=== PATIENT | male | born 1950 | race African-American/Black ===

== ENCOUNTER 2017-07-08 06:31 | Observation (INO) | payer BC ==
[~2017-07-08] VITALS: Ht 172.7 cm; Wt 86.5 kg
[2017-07-08] VITALS (11 sets, daily range): BP systolic 108–150; BP diastolic 56–80; PULSE 74–102; RESP 18–20; TEMP 97.8–99.7; O2SAT 93–99
[2017-07-08] MEDS ORDERED: SODIUM CHLORIDE 2 ML FLUSH PRN IV FLUSH (07:00)
[2017-07-08] MEDS ORDERED: SODIUM CHLOR 0.9% 1000 ML IV SCH (07:00)
[2017-07-08] MEDS: SODIUM CHLOR 0.9% 1000 ML IV SCH (07:00)
[2017-07-08] MEDS ORDERED: AMLO-131 PO (07:00)
[2017-07-08] MEDS ORDERED: NORC5TAB PO (07:00)
[2017-07-08] MEDS ORDERED: LOSA100T PO (07:00)
[2017-07-08] MEDS ORDERED: HYDR25TA5 PO (07:00)
[2017-07-08 07:18] LABS: AUTOMATED NEUTROPHIL # 9.5 TH/MM3 (1.8-7.7); BASOPHIL # 0.1 TH/MM3 (0-0.2); BASOPHIL % 0.9 % (0.0-2.0); EOSINOPHIL # 0.2 TH/MM3 (0-0.4); EOSINOPHIL % 1.4 % (0.0-4.0); HEMATOCRIT 28.3 % (39.0-51.0); LYMPH % 9.2 % (9.0-44.0); LYMPHOCYTE # 1.1 TH/MM3 (1.0-4.8); MEAN CELL VOLUME 70.7 FL (80.0-100.0); MEAN CORPUSCULAR HEMOGLOBIN 22.4 PG (27.0-34.0); MEAN CORPUSCULAR HGB CONC 31.7 % (32.0-36.0); MEAN PLATELET VOLUME 7.7 FL (7.0-11.0); MONO % 9.9 % (0.0-8.0); MONOCYTE # 1.2 TH/MM3 (0-0.9); NEUT % 78.6 % (16.0-70.0); PLATELET COUNT 323 TH/MM3 (150-450); RED CELL DISTRIBUTION WIDTH 15.2 % (11.6-17.2); WHITE BLOOD COUNT 12.1 TH/MM3 (4.0-11.0)
[2017-07-08] MEDS ORDERED: LIDOCAINE 1%/EPINEPHrine 1:100,000 SOLN 20 ML VIAL ONE (07:50)
[2017-07-08] MEDS ORDERED: MIDAZOLAM HCL 2 MG/2 ML VIAL ONE (08:06)
[2017-07-08] MEDS: SODIUM CHLORIDE 2 ML FLUSH BID IV FLUSH SCH ×2 (09:00→20:57)
--- NOTE | 2017-07-08 09:05 | PD.RAD ---
Post CT Procedure Prog Note Pre Procedure Diagnosis: (1) Liver masses Post Procedure Diagnosis: (1) Liver masses Procedure Date: Jul 08, 2017 Supervising Radiologist: Fabian Dawson Estimated blood loss: minimal Anesthesia: Conscious Sedation Plan of Activity Patient to Unit: [facility] Patient Condition: Good See PACS Report for procedural detail/treatment Biopsy Imaging Guidance: CT Side: Right Biopsy Procedure: Liver Specimen: Core Biopsy Additional Detail: 10 18G core biopsies obtained. Plan to [facility] for monitoring. Fabian Dawson MD Jul 08, 2017 09:05
[2017-07-08] MEDS ORDERED: HYDROmorphone HCL 2 MG TAB PO PRN (09:15)
[2017-07-08] MEDS ORDERED: PILL SPLITTER OTHER PRN (09:30)
--- NOTE | 2017-07-08 10:30 | RADRPT ---
EXAM DATE/TIME: 07/08/2017 08:17 This report includes an Addendum and supersedes previous reports for this exam. [facility] COMPARISON: No previous studies available for comparison. INDICATIONS : Liver mass. SEDATION TIME: 30 minutes BIOPSY SITE: liver MEDICATION(S): 1.) 2 mg midazolam (Versed) IV 2.) 100 mcg fentanyl (Sublimaze) IV DEVICE(S): 1.) 17 gauge coaxial 10cm 2.) 18 gauge Temno core biopsy needle 15cm MEDICAL HISTORY : Carcinoma, prostate. SURGICAL HISTORY : None. ENCOUNTER: Initial ACUITY: 1 day PAIN SCORE: 0/10 LOCATION: Right lateral A total of ten core specimen(s) were obtained and sent to the laboratory for pathologic evaluation. PROCEDURE: 1. CT guided liver biopsy. 2. Conscious sedation with continuous EKG and oximetry monitoring. Prior to the procedure informed consent was obtained. The patient's prior PET CT examination was revi ewed. Using automated exposure control and adjustment of the mA and/or kV according to patient size, radiat ion dose was kept as low as reasonably achievable to obtain optimal diagnostic quality images. DICOM format image data is available electronically for review and comparison. The site was prepped in a sterile fashion. Full sterile technique was used, including cap, mask, aryan rile gloves and gown and a large sterile sheet. Hand hygiene and 2% chlorhexidine and/or betadine/al cohol prep was utilized per protocol for cutaneous antisepsis. The skin and subcutaneous tissues wer e infiltrated with local anesthetic solution. With CT guidance the abnormal right lobe of the liver was targeted with attempt to pass through dariusz l liver peripherally. Biopsy was performed using the prescribed needle as above. Adequate hemostasis was obtained with compression at the puncture site. Cyto technologist was present during the procedu re and felt that a cellular was specimen was obtained. Follow-up CT scan reveals a right perihepatic hemorrhage and hematoma. The patient tolerated the procedure well and there were no complications. The patient was returned to the Radiology Outpatient Unit in stable condition. CONCLUSION: CT guided liver biopsy performed, as above. There is perihepatic hemorrhage at the end of the procedu re. Patient will be monitored closely for any signs of continued bleeding. Fabian Dawson MD on July 08, 2017 at 10:21 Board Certified Radiologist. This report was verified electronically. ADDENDUM: Followup CT was performed 8 hours postprocedure to further evaluate the fred[place]ick hepatic and intraperiton eal hemorrhage. The volume of blood products is unchanged compared to the three-hour scan performed p ost biopsy. No angiogram or interventional procedure will likely be needed given the stability. Patie nt will be placed and 23 hour observation to closely monitor for any signs of additional hemorrhage. Fabian Dawson MD on July 08, 2017 at 17:20 Board Certified Radiologist. This report was verified electronically.
--- NOTE | 2017-07-08 16:26 | PD.CONS ---
HPI Service [facility] Hospitalists Consult Requested By Interventional radiology services Reason for Consult Medical management Primary Care Physician Non-Staff Diagnoses: History of Present Illness Written by Teri Abbasi, acting as scribe for Dr. Hagen on 07/08/17 at 16: 18. This is a 66-year-old male with past medical history significant for hypertension, dyslipidemia and prostate cancer who recently presented to [facility] in [place] with 1-2 month history of anorexia, 10 pound weight loss and lack of energy. He was also expecting abdominal pain. Patient underwent CT of abdomen and pelvis which revealed diffuse metastatic disease in the liver and an enhancing area overlying the mesentery and omentum consistent with omental metastatic involvement. He was also found to have an large lymph nodes and suspicious masslike involvement into the rectum suggestive of malignancy. Patient was recently seen for his initial evaluation by Dr. Hay who recommended patient for CT-guided biopsy of liver. Patient underwent CT-guided biopsy liver today by Dr. Fuentes with perihepatic hematoma. He has been admitted for overnight observation and hospitalist services have been consulted for medical management. Review of Systems Except as stated in HPI: all other systems reviewed are Neg Past Family Social History Allergies: Coded Allergies: No Known Allergies (Unverified , 07/08/17) Past Medical History HTN HLD Prostate Cancer Kidney disease Past Surgical History Colonoscopy Reported Medications AmLODIPine Besylate 1 Tablet (of 10 mg) Oral daily Atorvastatin Calcium 1 Tablet (of 20 mg) Oral daily HydroCHLOROthiazide 1 Tablet (of 25 mg) Oral daily Losartan Potassium 1 Tablet (of 100 mg) Oral daily [place] 1 Tablet (of 5-325 mg) Oral daily Active Ordered Medications Current Medications Medications (Trade) Dose Ordered Sig/Gena Route Start Time Stop Time Status Last Admin (NS Flush) 2 ml BID IV FLUSH 07/08/17 09:00 (NS Flush) 2 ml UNSCH PRN IV FLUSH 07/08/17 07:00 Sodium Chloride 1,000 ml @ 30 mls/hr Q24H IV 07/08/17 07:00 07/08/17 07:00 (Dilaudid) 1 mg Q6H PRN PO 07/08/17 09:15 (Pill Splitter) 1 ea UNSCH PRN OTHER 07/08/17 09:30 Social History Patient has a history of previous tobacco use for 2 years but quit smoking 30 years ago. He is a former drinker. Patient is and lives with his . Physical Exam Vital Signs Vital Signs Date Time Temp Pulse Resp B/P (MAP) Pulse Ox O2 Delivery O2 Flow Rate FiO2 07/08/17 14:00 94 Room Air 07/08/17 14:00 89 20 127/68 (87) 94 07/08/17 13:00 90 20 135/68 (90) 95 07/08/17 13:00 95 Room Air 07/08/17 11:00 98 20 117/64 (81) 95 07/08/17 11:00 95 Room Air 07/08/17 10:30 82 20 121/56 (77) 96 07/08/17 10:30 96 Room Air 07/08/17 10:00 74 20 118/65 (82) 95 07/08/17 10:00 95 Room Air 07/08/17 09:40 96 Room Air 07/08/17 09:40 84 20 137/78 (97) 96 07/08/17 09:25 98.3 86 20 137/78 (97) 97 07/08/17 09:25 95 Room Air 07/08/17 09:24 95 Room Air 07/08/17 07:00 94 Room Air 07/08/17 06:50 97.8 102 20 150/80 (103) 94 Physical Exam GENERAL: This is a well-nourished, well-developed patient, in no apparent distress. SKIN: No rashes, ecchymoses or lesions. Cool and dry. HEAD: Atraumatic. Normocephalic. No temporal or scalp tenderness. EYES: Pupils equal round and reactive. Extraocular motions intact. No scleral icterus. No injection or drainage. ENT: Nose without bleeding, purulent drainage or septal hematoma. Throat without erythema, tonsillar hypertrophy or exudate. Uvula midline. Airway patent. NECK: Trachea midline. No JVD or lymphadenopathy. Supple, nontender, no meningeal signs. CARDIOVASCULAR: Regular rate and rhythm without murmurs, gallops, or rubs. RESPIRATORY: Clear to auscultation. Breath sounds equal bilaterally. No wheezes , rales, or rhonchi. GASTROINTESTINAL: Abdomen soft, non-tender, nondistended. No hepato-splenomegaly , or palpable masses. No guarding. MUSCULOSKELETAL: Extremities without clubbing, cyanosis, or edema. No joint tenderness, effusion, or edema noted. No calf tenderness. Negative Homans sign bilaterally. NEUROLOGICAL: Awake and alert. Cranial nerves II through XII intact. Motor and sensory grossly within normal limits. Five out of 5 muscle strength in all muscle groups. Normal speech. Laboratory Laboratory Tests Test 07/08/17 07:08 White Blood Count 12.1 Red Blood Count 4.00 Hemoglobin 9.0 Hematocrit 28.3 Mean Corpuscular Volume 70.7 Mean Corpuscular Hemoglobin 22.4 Mean Corpuscular Hemoglobin Concent 31.7 Red Cell Distribution Width 15.2 Platelet Count 323 Mean Platelet Volume 7.7 Neutrophils (%) (Auto) 78.6 Lymphocytes (%) (Auto) 9.2 Monocytes (%) (Auto) 9.9 Eosinophils (%) (Auto) 1.4 Basophils (%) (Auto) 0.9 Neutrophils # (Auto) 9.5 Lymphocytes # (Auto) 1.1 Monocytes # (Auto) 1.2 Eosinophils # (Auto) 0.2 Basophils # (Auto) 0.1 CBC Comment DIFF FINAL Differential Comment Result Diagram: 07/08/17 0708 Assessment and Plan Assessment and Plan 66-year-old male with past medical history significant for hypertension, dyslipidemia and prostate cancer with liver lesions, omental lesions and retroperitoneal adenopathy highly suspicious for malignancy status post CT- guided biopsy of the liver today performed by Dr. Fuentes with perihepatic hematoma admitted for overnight observation. s/p CT guided biopsy of the liver by IR - Management per IR Perihepatic hematoma s/p biopsy - Avoid anticoagulants - Monitor CBC closely Abdominal pain secondary to malignancy - Pain management with bowel regimen Anemia, microcytic, hypochromic - Suspect anemia of chronic disease - Obtain iron studies - Monitor CBC closely especially in light postprocedural perihepatic hematoma Leukocytosis - Suspect reactive - Patient is afebrile - Monitor white count, a.m. labs ordered Hypertension - hypotensive at present - gentle IVF - Hold home dose of amlodipine, hydrochlorothiazide and losartan - Monitor BP and adjust treatment accordingly Dyslipidemia - Continue patient on home dose of atorvastatin DVT prophylaxis - Chemoprophylaxis contraindicated - Bilateral SCDs/BETTY hose Thank you for the kindly for this consultation. Will continue to follow this patient along with you. This note was transcribed by KARLEY Ortega. I, Dr. Zulema Hagen personally performed the history, physical exam, and medical decision making; and confirmed the accuracy of the information in the transcribed note. Authenticated by Dr. Zulema Hagen on 07/08/17 at 16:18. Discussed Condition With patient, nursing staff Teri Abbasi Jul 08, 2017 16:26 Zulema Hagen MD Jul 08, 2017 19:34
[2017-07-08 17:28] LABS: HEMOGLOBIN 8.1 GM/DL (13.0-17.0)
[2017-07-08 17:51] LABS: % SATURATION IRON PROFILE 13.4 % (20-50); IRON (FE) 30 MCG/DL (65-175); TOTAL IRON BINDING CAPACITY 224 MCG/DL (250-450)
[2017-07-08 18:06] LABS: FERRITIN 2470 NG/ML (26-388)
[2017-07-09] VITALS: BP 125/83; PULSE 91; RESP 20; TEMP 98.9; O2SAT 95
[2017-07-09 04:28] VITALS: BP 135/60; PULSE 86; RESP 18; TEMP 98.9; O2SAT 98
[2017-07-09 07:55] VITALS: BP 116/64; PULSE 87; RESP 19; TEMP 98.5; O2SAT 97
[2017-07-09 07:55] LABS: AUTOMATED NEUTROPHIL # 8.5 TH/MM3 (1.8-7.7); BASOPHIL # 0.1 TH/MM3 (0-0.2); BASOPHIL % 0.8 % (0.0-2.0); EOSINOPHIL # 0.1 TH/MM3 (0-0.4); EOSINOPHIL % 0.5 % (0.0-4.0); HEMATOCRIT 23.7 % (39.0-51.0); HEMOGLOBIN 7.5 GM/DL (13.0-17.0); LYMPHOCYTE # 1.2 TH/MM3 (1.0-4.8); MEAN CELL VOLUME 70.3 FL (80.0-100.0); MEAN CORPUSCULAR HEMOGLOBIN 22.3 PG (27.0-34.0); MEAN CORPUSCULAR HGB CONC 31.6 % (32.0-36.0); MEAN PLATELET VOLUME 8.3 FL (7.0-11.0); MONOCYTE # 1.3 TH/MM3 (0-0.9); NEUT % 75.7 % (16.0-70.0); PLATELET COUNT 267 TH/MM3 (150-450); RED BLOOD COUNT 3.36 MIL/MM3 (4.50-5.90); WHITE BLOOD COUNT 11.2 TH/MM3 (4.0-11.0)
[2017-07-09] MEDS: SODIUM CHLORIDE 2 ML FLUSH BID IV FLUSH SCH (08:23)
[2017-07-09] MEDS: SODIUM CHLOR 0.9% 1000 ML IV SCH (08:24)
[2017-07-09 08:48] LABS: ALBUMIN 2.8 GM/DL (3.4-5.0); ALT (GPT) 127 U/L (12-78); AST (GOT) 173 U/L (15-37); BLOOD UREA NITROGEN 57 MG/DL (7-18); CALCIUM 9.2 MG/DL (8.5-10.1); CHLORIDE 102 MEQ/L (98-107); CREATININE 2.24 MG/DL (0.60-1.30); GLOMERULAR FILTRATION RATE 36 ML/MIN (>89); GLUCOSE,RANDOM 96 MG/DL (74-106); SODIUM (NA) 138 MEQ/L (136-145)
[2017-07-09 08:50] LABS: ALKALINE PHOSPHATASE 561 U/L (45-117); TOTAL BILIRUBIN ADULT 1.2 MG/DL (0.2-1.0); TOTAL PROTEIN 7.7 GM/DL (6.4-8.2)
[2017-07-09] MEDS ORDERED: HYDROCHLOROTHIAZIDE 25 MG TAB PO SCH (09:00)
[2017-07-09] MEDS ORDERED: LOSARTAN 50 MG TAB PO SCH (09:00)
[2017-07-09] MEDS ORDERED: ATORVASTATIN 20 MG TAB PO SCH (09:00)
[2017-07-09] MEDS ORDERED: NON-FORMULARY DRUG (Amlodipine-Atorvastatin 1 TAB) PO SCH (09:00)
[2017-07-09 11:41] VITALS: BP 117/67; PULSE 90; RESP 18; TEMP 99.1; O2SAT 98
[2017-07-09 13:05] LABS: AUTOMATED NEUTROPHIL # 8.4 TH/MM3 (1.8-7.7); BASOPHIL # 0.1 TH/MM3 (0-0.2); BASOPHIL % 0.8 % (0.0-2.0); EOSINOPHIL # 0.1 TH/MM3 (0-0.4); EOSINOPHIL % 0.6 % (0.0-4.0); HEMATOCRIT 25.5 % (39.0-51.0); HEMOGLOBIN 7.8 GM/DL (13.0-17.0); LYMPH % 11.7 % (9.0-44.0); LYMPHOCYTE # 1.3 TH/MM3 (1.0-4.8); MEAN CELL VOLUME 70.4 FL (80.0-100.0); MEAN CORPUSCULAR HEMOGLOBIN 21.6 PG (27.0-34.0); MEAN CORPUSCULAR HGB CONC 30.6 % (32.0-36.0); MEAN PLATELET VOLUME 7.9 FL (7.0-11.0); MONO % 10.9 % (0.0-8.0); MONOCYTE # 1.2 TH/MM3 (0-0.9); PLATELET COUNT 288 TH/MM3 (150-450); RED BLOOD COUNT 3.62 MIL/MM3 (4.50-5.90); RED CELL DISTRIBUTION WIDTH 15.4 % (11.6-17.2); WHITE BLOOD COUNT 11.1 TH/MM3 (4.0-11.0)
--- NOTE | 2017-07-09 14:21 | HHI.DS ---
Discharge Summary Admission Date 07/08/17 Discharge Date: Jul 09, 2017 Admitting Diagnosis Perihepatic hematoma. (1) Liver masses ICD Code: R16.0 - Hepatomegaly, not elsewhere classified Procedures A biopsy performed by interventional radiology. Please see report. Brief History - From Admission Written by Teri Abbasi, acting as scribe for Dr. Hagen on 07/08/17 at 16: 18. This is a 66-year-old male with past medical history significant for hypertension, dyslipidemia and prostate cancer who recently presented to [facility] in [place] with 1-2 month history of anorexia, 10 pound weight loss and lack of energy. He was also expecting abdominal pain. Patient underwent CT of abdomen and pelvis which revealed diffuse metastatic disease in the liver and an enhancing area overlying the mesentery and omentum consistent with omental metastatic involvement. He was also found to have an large lymph nodes and suspicious masslike involvement into the rectum suggestive of malignancy. Patient was recently seen for his initial evaluation by Dr. Hay who recommended patient for CT-guided biopsy of liver. Patient underwent CT-guided biopsy liver today by Dr. Fuentes with perihepatic hematoma. He has been admitted for overnight observation and hospitalist services have been consulted for medical management. CBC/BMP: 07/09/17 1237 07/09/17 0707 Significant Findings Laboratory Tests Test 07/08/17 07:08 07/08/17 16:57 07/09/17 07:07 07/09/17 12:37 White Blood Count 12.1 TH/MM3 (4.0-11.0) 11.2 TH/MM3 (4.0-11.0) 11.1 TH/MM3 (4.0-11.0) Red Blood Count 4.00 MIL/MM3 (4.50-5.90) 3.36 MIL/MM3 (4.50-5.90) 3.62 MIL/MM3 (4.50-5.90) Hemoglobin 9.0 GM/DL (13.0-17.0) 8.1 GM/DL (13.0-17.0) 7.5 GM/DL (13.0-17.0) 7.8 GM/DL (13.0-17.0) Hematocrit 28.3 % (39.0-51.0) 26.0 % (39.0-51.0) 23.7 % (39.0-51.0) 25.5 % (39.0-51.0) Mean Corpuscular Volume 70.7 FL (80.0-100.0) 70.3 FL (80.0-100.0) 70.4 FL (80.0-100.0) Mean Corpuscular Hemoglobin 22.4 PG (27.0-34.0) 22.3 PG (27.0-34.0) 21.6 PG (27.0-34.0) Mean Corpuscular Hemoglobin Concent 31.7 % (32.0-36.0) 31.6 % (32.0-36.0) 30.6 % (32.0-36.0) Neutrophils (%) (Auto) 78.6 % (16.0-70.0) 75.7 % (16.0-70.0) 76.0 % (16.0-70.0) Monocytes (%) (Auto) 9.9 % (0.0-8.0) 12.0 % (0.0-8.0) 10.9 % (0.0-8.0) Neutrophils # (Auto) 9.5 TH/MM3 (1.8-7.7) 8.5 TH/MM3 (1.8-7.7) 8.4 TH/MM3 (1.8-7.7) Monocytes # (Auto) 1.2 TH/MM3 (0-0.9) 1.3 TH/MM3 (0-0.9) 1.2 TH/MM3 (0-0.9) Iron Level 30 MCG/DL (65-175) Total Iron Binding Capacity 224 MCG/DL (250-450) Percent Iron Saturation 13.4 % (20-50) Ferritin 2470 NG/ML (26-388) Blood Urea Nitrogen 57 MG/DL (7-18) Creatinine 2.24 MG/DL (0.60-1.30) Albumin 2.8 GM/DL (3.4-5.0) Alkaline Phosphatase 561 U/L (45-117) Aspartate Amino Transf (AST/SGOT) 173 U/L (15-37) Alanine Aminotransferase (ALT/SGPT) 127 U/L (12-78) Total Bilirubin 1.2 MG/DL (0.2-1.0) Estimat Glomerular Filtration Rate 36 ML/MIN (>89) PE at Discharge GENERAL: sitting up in bed. Appears comfortable. Alert and oriented 4. SKIN: Warm and dry. HEAD: Normocephalic. EYES: No scleral icterus. No injection or drainage. NECK: Supple, trachea midline. No JVD. CARDIOVASCULAR: Regular rate and rhythm without murmurs, gallops, or rubs. RESPIRATORY: Breath sounds equal bilaterally. No accessory muscle use. GASTROINTESTINAL: Abdomen soft, non-tender, nondistended. Biopsy site without any surrounding erythema or ecchymosis. MUSCULOSKELETAL: No cyanosis, or edema. BACK: Nontender without obvious deformity. No CVA tenderness. Pt update on day of discharge Patient says he is feeling well. Denies any chest pain or shortness breath. Denies any nausea or vomiting. Reports pain is controlled. Feels like going home. Hospital Course 66-year-old male with past medical history significant for hypertension, dyslipidemia and prostate cancer with liver lesions, omental lesions and retroperitoneal adenopathy highly suspicious for malignancy status post CT- guided biopsy of the liver today performed by Dr. Fuentes with perihepatic hematoma admitted for overnight observation. Hemoglobin went down from 9.0-7.5 on 07/09. Subsequent hemoglobin 7.8. Patient blood pressure found to be borderline low, and losartan, amlodipine will be discontinued. We'll also discontinue patient's statin medication due to malignant transaminitis. followup with oncology as outpatient. //s/p CT guided biopsy of the liver by IR - Management per IR = Patient cleared by IR for discharge. //Perihepatic hematoma s/p biopsy - Avoid anticoagulants - Monitor CBC closely = Hemoglobin down to 7.5. Recheck at noon 7.8. Stable. IR has clear patient for discharge. //Abdominal pain secondary to malignancy - Continue Pain management with bowel regimen //Anemia, microcytic, hypochromic - Suspect anemia of chronic disease - Obtain iron studies - Monitor CBC closely especially in light postprocedural perihepatic hematoma //Leukocytosis - Suspect reactive - Patient is afebrile -White count 12.1 on admission, subsequently 11.1. No signs of infection. //Hypertension - hypotensive at present - gentle IVF - Hold home dose of amlodipine, hydrochlorothiazide and losartan - Monitor BP and adjust treatment accordingly -Blood pressure relatively low with systolic blood pressures in the 100s. We 'll discontinue home amlodipine, losartan. Continue hydrochlorothiazide at this may help with ascites. //Dyslipidemia -Continue statin due to ligament transaminitis. //DVT prophylaxis - Chemoprophylaxis contraindicated - Bilateral SCDs/BETTY jones Pt Condition on Discharge: Good Discharge Disposition: Discharge Home Discharge Time: > 30 minutes Discharge Instructions DIET: Follow Instructions for: As Tolerated, No Restrictions Activities you can perform: Regular-No Restrictions Follow up Referrals: Oncology - 1 Week PCP Follow-up - 1 Week Continued Medications: Hydrochlorothiazide (Hydrochlorothiazide) 25 Mg Tab 25 MG PO DAILY, #30 TAB 0 Refills Hydrocodone-Acetaminophen ([place]) 5 Mg-325 Mg Tab 1 TAB PO Q4H PRN for PAIN, TAB 0 Refills Discontinued Medications: Amlodipine-Atorvastatin (Amlodipine-Atorvastatin) 10-20 Mg Tab 1 TAB PO DAILY for Blood Pressure Management, #30 TAB 0 Refills Losartan (Losartan) 100 Mg Tab 100 MG PO DAILY for Blood Pressure Management, #30 TAB 0 Refills Rojelio Brown MD Jul 09, 2017 14:21
== END 2017-07-09 15:24 | disposition home or self-care (01) ==
LOC: HRAD 06:31 → HRIP 06:35 → HRAD 13:00 → N05B 13:00 → HRAD 07-09 15:24 → N05B 07-09 15:24
PROVIDERS: ADMIT Internal Medicine; ATTEND Internal Medicine
DX: C78.7 Secondary malignant neoplasm of liver and intrahepatic bile duct (principal); C78.6 Secondary malignant neoplasm of retroperitoneum and peritoneum; C61 Malignant neoplasm of prostate; K91.870 Postprocedural hematoma of a digestive system organ or structure following a digestive system procedure; D72.829 Elevated white blood cell count, unspecified; D50.9 Iron deficiency anemia, unspecified; I10 Essential (primary) hypertension; G89.3 Neoplasm related pain (acute) (chronic); R10.9 Unspecified abdominal pain; E78.5 Hyperlipidemia, unspecified; R18.8 Other ascites; Z87.891 Personal history of nicotine dependence; Y83.8 Other surgical procedures as the cause of abnormal reaction of the patient, or of later complication, without mention of misadventure at the time of the procedure
CPT/HCPCS: 47000; 77012; 80053; 82728; 83540; 83550; 85014; 85018; 85025; 88307; 88333; 88341; 88342; 96360; 96361; G0378; J2250; J3010; J7030

== ENCOUNTER 2017-07-22 05:55 | Day surgery (SDC) | payer MEDICARE ==
[~2017-07-22] VITALS: Ht 175.3 cm; Wt 74.5 kg
[~2017-07-22 05:55] MED LIST: HYDR25TA5 PO; NORC5TAB PO
[2017-07-22] MEDS ORDERED: AMLO10TA2 PO (06:37)
[2017-07-22 06:43] VITALS: BP 138/84; PULSE 108; RESP 20; TEMP 98.1; O2SAT 97
[2017-07-22] MEDS ORDERED: VANCOMYCIN 1000 MG/NS 250 ML - implanted port/tunneled catheter IV SCH ×2 (07:00)
[2017-07-22] MEDS ORDERED: CHLORHEXIDINE GLUCONATE 2 % 1 PACK (2 CLOTHS) TOPICAL SCH (07:00)
[2017-07-22] MEDS ORDERED: POVIDONE IODINE 5% (ANTISEPSIS KIT) 4 APPLICATIONS EACH NARE SCH (07:00)
[2017-07-22] MEDS ORDERED: SODIUM CHLORIDE 0.9% 1000 ML IV SCH (07:00)
[2017-07-22] MEDS ORDERED: ceFAZolin 2 GM PREMIX 50 ML - implanted port/tunneled catheter insertion IV SCH (07:00)
[2017-07-22 07:45] LABS: INTERNATIONAL NORMALIZED RATIO 1.2 RATIO; PROTHROMBIN TIME - PATIENT 11.7 SEC (9.8-11.6)
[2017-07-22] MEDS ORDERED: MIDAZOLAM HCL 2 MG/2 ML VIAL ONE ×2 (07:47→07:48)
[2017-07-22 08:55] VITALS: BP 116/85; PULSE 95; RESP 20; TEMP 97.9; O2SAT 97
[2017-07-22 09:10] VITALS: BP 121/80; PULSE 93; RESP 20; O2SAT 97
--- NOTE | 2017-07-22 09:12 | RADRPT ---
EXAM DATE/TIME: 07/22/2017 08:47 [facility] COMPARISON: No previous studies available for comparison. INDICATIONS : Patient presents with liver cancer in need of port placement for chemotherapy treatment. MEDICAL HISTORY : Prostate cancer HTN SURGICAL HISTORY : Colonoscopy ENCOUNTER: Initial ACUITY: 2 weeks PAIN SCORE: 0/10 LOCATION: N/A FLUORO TIME: 0.6 minutes IMAGE SERIES: 0 SEDATION TIME: 45 minutes ACCESS: Right internal jugular vein SEDATION: 1.) 2.5 mg midazolam (Versed) IV 2.) 125 mcg fentanyl (Sublimaze) IV Prophylactic antibiotics were administered with appropriate pre-procedure timing. Vancomycin within 2 hours of procedure, Ancef (or alternative) within 1 hour of procedure. DEVICE: 1. 8 Setswana single lumen Xcela plus port PROCEDURE : 1. Continuous pulse oximetry and EKG monitoring. 2. Intravenous conscious sedation. 3. Ultrasound guidance for venous access. 4. Fluoroscopic guided implantable central venous port placement. The patient was placed supine. The neck was prepped in sterile fashion. Full sterile technique was u sed, including cap, mask, sterile gloves and gown, and a large sterile sheet. Hand hygiene and 2% ch lorhexidine Betadine was utilized per protocol for cutaneous antisepsis with appropriate dry time for site. Sterile gel and sterile probe cover were utilized for ultrasound guidance. The skin and sub cutaneous tissues were infiltrated with local anesthetic solution. Under direct ultrasound guidance, central venous access was accomplished in the targeted vessel. The ultrasound images depicting access guidance were stored and saved to PACS for permanent record. A s ubcutaneous pocket was created using blunt dissection. The port was introduced to the pocket. The c atheter tubing was fed through a subcutaneous tunnel to the venotomy site. The catheter tubing was c ut to a suitable length and then was introduced through a valved Peel-Away sheath and positioned with catheter tubing tip at the cavo-atrial junction level. The pocket incision was closed with subcutic ular Vicryl suture. Steri-Strips were applied. The port was flushed and locked with heparin solutio n per protocol. Sterile dressing was applied to the site. The patient tolerated the procedure well. Conscious sedation was performed with the prescribed dosages and duration as above in the presence of an independent trained radiology nurse to assist in the monitoring of the patient. EKG and oximetry remained stable throughout the procedure. The patient tolerated the procedure well and there were no complications. The patient was sent to post anesthesia recovery in stable condition. CONCLUSION: Uncomplicated ultrasound and fluoroscopic guided implanted central venous port catheter placement as described in detail above. An 8 Setswana Power port was placed. Thomas Watson MD on July 22, 2017 at 9:09 Board Certified Radiologist. This report was verified electronically.
[2017-07-22 09:40] VITALS: BP 123/73; PULSE 88; RESP 18; O2SAT 95
[2017-07-22 10:10] VITALS: BP 133/75; PULSE 88; RESP 16; O2SAT 95
[2017-07-22 10:40] VITALS: BP 128/76; PULSE 89; RESP 16; O2SAT 95
--- NOTE | 2017-07-22 11:10 | PD.RAD ---
Post Procedure Progress Note Pre Procedure Diagnosis: (1) Liver masses Post Procedure Diagnosis: (1) Liver masses Procedure Date: Jul 22, 2017 Supervising Radiologist: Thomas Watson Anesthesia: Conscious Sedation Plan of Activity Patient to Unit: ROPU Patient Condition: Good See PACS Report for procedural detail/treatment Thomas Watson MD Jul 22, 2017 11:10
[2017-07-22] MEDS ORDERED: SODIUM CHLORIDE 0.9% FLUSH 10 ML FLUSH IVF PRN (11:15)
== END 2017-07-22 11:40 | disposition home or self-care (01) ==
LOC: HROP 05:55 → HRIP 05:55 → HROP 11:40
PROVIDERS: ATTEND Internal Medicine
DX: C78.7 Secondary malignant neoplasm of liver and intrahepatic bile duct (principal); C78.6 Secondary malignant neoplasm of retroperitoneum and peritoneum; C61 Malignant neoplasm of prostate; I10 Essential (primary) hypertension; Z85.46 Personal history of malignant neoplasm of prostate
CPT/HCPCS: 36561; 76937; 77001; 85610; 85730; 99152; 99153; C1788; J0690; J1642; J2250; J3010; J3370; J7030; J7050

== ENCOUNTER 2017-08-18 10:31 | Inpatient (IN) | payer MEDICARE ==
[~2017-08-18] VITALS: Ht 175.3 cm; Wt 75.0 kg
[~2017-08-18 10:31] MED LIST changes: +AMLO10TA2 PO
[2017-08-18 10:40] VITALS: BP 135/77; PULSE 107; RESP 18; TEMP 98.2; O2SAT 97
--- NOTE | 2017-08-18 12:11 | PD ---
HPI Chief Complaint: Complaint Time Seen by Provider: 11:52 Travel History International Travel<30 days: No Contact w/Intl Traveler<30days: No Traveled to known affect area: No History of Present Illness HPI 67-year-old male presents to the emergency department for evaluation of hematuria. Patient states this started 2 days ago. He states there is a small amount of blood in his urine. He denies any history of the same. Patient recently started on chemotherapy 3 weeks ago. He states he has had 2 chemotherapy treatments. He has a widely metastatic malignancy of unknown primary, GI/pancreatic, or biliary cancer is suspected. Patient states his abdomen has more distended over the past week. He also reports bilateral lower extremity edema within the past 3 days. He denies history of that. Patient denies any fevers. He denies any chest pain or shortness of breath. He denies any abdominal pain at this time. He states he has been urinating as normal, last time was this morning. Patient states he has no other medical problems. He does take pain medication. He denies any constipation issues at this time. He denies any exacerbating or alleviating factors. Moderate severity. His oncologist is Dr. Hay. [facility] Past Medical History Cancer: Yes (PROSTAE CA) Cardiovascular Problems: No Chemotherapy: Yes (APPROX 2 WEEKS AGO) Diabetes: No Endocrine: No Genitourinary: No Hepatitis: No Hiatal Hernia: No Hypertension: Yes Immune Disorder: No Musculoskeletal: No Neurologic: No Psychiatric: No Reproductive: No Respiratory: No Immunizations Current: No Thyroid Disease: No Tetanus Vaccination: > 5 Years Influenza Vaccination: No Past Surgical History Surgical History: No Previous Surgery AICD: No Joint Replacement: No Pacemaker: No Social History Alcohol Use: No Tobacco Use: No Substance Use: No Allergies-Medications (Allergen,Severity, Reaction): Coded Allergies: No Known Allergies (Unverified , 08/18/17) Reported Meds & Prescriptions Reported Meds & Active Scripts Active Reported [place] (Hydrocodone-Acetaminophen) 5 Mg-325 Mg Tab 1 Tab PO Q4H PRN Review of Systems Except as stated in HPI: all other systems reviewed are Neg Physical Exam Narrative GENERAL: Well-nourished, well-developed male patient, afebrile. SKIN: Focused skin assessment warm/dry. HEAD: Normocephalic. Atraumatic. EYES: No scleral icterus. No injection or drainage. NECK: Supple, trachea midline. No JVD or lymphadenopathy. CARDIOVASCULAR: Regular rate and rhythm without murmurs, gallops, or rubs. RESPIRATORY: Breath sounds equal bilaterally. No accessory muscle use. Lungs sounds are clear to auscultation. GASTROINTESTINAL: Abdomen distended. No reproducible tenderness to palpation. MUSCULOSKELETAL: No cyanosis. Bilateral lower extremity edema 3+, pitting. BACK: Nontender without obvious deformity. No CVA tenderness. Data Data Last Documented VS Vital Signs Date Time Temp Pulse Resp B/P (MAP) Pulse Ox O2 Delivery O2 Flow Rate FiO2 08/18/17 13:16 96 18 137/72 (93) 99 Room Air 08/18/17 10:40 98.2 Orders Orders Urinalysis - C+S If Indicated (08/18/17 10:45) Complete Blood Count With Diff (08/18/17 12:08) Comprehensive Metabolic Panel (08/18/17 12:08) Prothrombin Time / Inr (Pt) (08/18/17 12:08) Act Partial Throm Time (Ptt) (08/18/17 12:08) Ct Abd/Pel W Iv Contrast(Rout) (08/18/17 12:08) Iv Access Insert/Monitor (08/18/17 12:08) Ecg Monitoring (08/18/17 12:08) Oximetry (08/18/17 12:08) Sodium Chloride 0.9% Flush (Ns Flush) (08/18/17 12:15) Chest, Single Ap (08/18/17 12:08) B-Type Natriuretic Peptide (08/18/17 12:08) Us Leg Venous Doppler Bilat (08/18/17 ) Cath For Specimen (08/18/17 12:08) Type And Screen (08/18/17 12:57) Iohexol 350 Inj (Omnipaque 350 Inj) (08/18/17 13:58) Lactic Acid Sepsis Protocol (08/18/17 14:28) Blood Culture (08/18/17 14:28) Urine Culture (08/18/17 14:25) Ceftriaxone Inj (Rocephin Inj) (08/18/17 15:00) Labs Laboratory Tests Test 08/18/17 12:00 08/18/17 14:25 White Blood Count 16.2 TH/MM3 Red Blood Count 3.97 MIL/MM3 Hemoglobin 9.6 GM/DL Hematocrit 30.3 % Mean Corpuscular Volume 76.5 FL Mean Corpuscular Hemoglobin 24.2 PG Mean Corpuscular Hemoglobin Concent 31.6 % Red Cell Distribution Width 19.5 % Platelet Count 719 TH/MM3 Mean Platelet Volume 7.6 FL Neutrophils (%) (Auto) 69.5 % Lymphocytes (%) (Auto) 14.1 % Monocytes (%) (Auto) 15.1 % Eosinophils (%) (Auto) 0.8 % Basophils (%) (Auto) 0.5 % Neutrophils # (Auto) 11.3 TH/MM3 Lymphocytes # (Auto) 2.3 TH/MM3 Monocytes # (Auto) 2.5 TH/MM3 Eosinophils # (Auto) 0.1 TH/MM3 Basophils # (Auto) 0.1 TH/MM3 CBC Comment AUTO DIFF Differential Total Cells Counted 100 Neutrophils % (Manual) 49 % Band Neutrophils % 34 % Lymphocytes % 3 % Monocytes % 10 % Eosinophils % 2 % Neutrophils # (Manual) 13.8 TH/MM3 Metamyelocytes 2 % Differential Comment FINAL DIFF MANUAL Platelet Estimate HIGH Platelet Morphology Comment NORMAL Target Cells 1+ Acanthocytes OCC Prothrombin Time 12.0 SEC Prothromb Time International Ratio 1.2 RATIO Activated Partial Thromboplast Time 30.0 SEC Blood Urea Nitrogen 24 MG/DL Creatinine 0.95 MG/DL Random Glucose 88 MG/DL Total Protein 6.9 GM/DL Albumin 2.0 GM/DL Calcium Level 9.0 MG/DL Alkaline Phosphatase 927 U/L Aspartate Amino Transf (AST/SGOT) 77 U/L Alanine Aminotransferase (ALT/SGPT) 53 U/L Total Bilirubin 1.3 MG/DL Sodium Level 131 MEQ/L Potassium Level 4.7 MEQ/L Chloride Level 100 MEQ/L Carbon Dioxide Level 21.4 MEQ/L Anion Gap 10 MEQ/L Estimat Glomerular Filtration Rate 96 ML/MIN B-Type Natriuretic Peptide 26 PG/ML Urine Color YELLOW Urine Turbidity CLOUDY Urine pH 8.0 Urine Specific [place] 1.025 Urine Protein 100 mg/dL Urine Glucose (UA) NEG mg/dL Urine Ketones NEG mg/dL Urine Occult Blood LARGE Urine Nitrite POS Urine Bilirubin NEG Urine Urobilinogen LESS THAN 2.0 MG/DL Urine Leukocyte Esterase LARGE Urine RBC 120 /hpf Urine WBC /hpf Urine WBC Clumps MANY Urine Squamous Epithelial Cells 7 /hpf Urine Bacteria MOD /hpf Microscopic Urinalysis Comment CULTURE INDICATED MDM Medical Decision Making Medical Screen Exam Complete: Yes Emergency Medical Condition: Yes Medical Record Reviewed: Yes Differential Diagnosis CT abdomen/pelvis - CONCLUSION: Widespread metastatic disease catheter in the liver. Partially calcified gallbladder wall with some internal debris likely stones. With the amount of disease around the gallbladder fossa within the liver, gallbladder carcinoma would be within the differential. The pancreas kidneys adrenal glands are unremarkable. Extensive ascites. Chest x-ray - CONCLUSION: 1. Hypoaerated lungs. 2. No evidence of acute air space disease or pneumothorax. 3. Right-sided Urbfxw-l-Eptb. US - CONCLUSION: Normal examination. Narrative Course 67-year-old male presents to the emergency department for evaluation hematuria for 2 days. On exam, he also has bilateral pitting lower extremity edema that he states he has had for 3 days as well as a distended abdomen for one week. He is currently undergoing chemotherapy for widely metastatic malignancy, adenocarcinoma. CBC, CMP, BNP, PTT, PT/INR, UA are ordered and pending. Chest x-ray, ultrasound of the bilateral legs venous Doppler, CT abdomen/pelvis with IV contrast are ordered and pending. CBC shows leukocytosis 16.2, anemia with hemoglobin 9.6, hematocrit 30.3, platelets 719, band neutrophils 34. CMP shows bilirubin 1.3, AST 77, alkaline phosphatase 927, hyponatremia of 131. BNP is 26. Coags show no acute abnormality. UA [-]. Chest x-ray shows hypoaerated lungs; No evidence of acute air space disease or pneumothorax; Right-sided Eiblqd-r-Iwzb. US is normal. CT abdomen/pelvis shows widespread metastatic disease In the liver, partially calcified gallbladder wall with some internal debris likely stones, with the amount of disease around the gallbladder fossa within the liver, gallbladder carcinoma would be within the differential. The pancreas, kidneys, adrenal glands are unremarkable. Extensive ascites. Lactic acid, blood cultures 2 were ordered and pending. Patient is given Rocephin1 mg IV. Dr. Brown accepted admission. Sepsis Criteria SIRS Criteria (2 or more): Heart rate over 90, WBC > 28357, < 4000 or > 10% bands Sepsis Criteria (SIRS+source): Infect source susp/known Diagnosis Primary Impression: Urinary tract infection Qualified Codes: N30.01 - Acute cystitis with hematuria Additional Impressions: Sepsis Qualified Codes: A41.9 - Sepsis, unspecified organism Metastatic adenocarcinoma Admitting Information Admitting Physician Requests: Admit Meredith Tabares Aug 18, 2017 12:11
[2017-08-18] MEDS ORDERED: SODIUM CHLORIDE 0.9% FLUSH 10 ML FLUSH IV FLUSH PRN ×2 (12:15→15:30)
--- NOTE | 2017-08-18 13:02 | RADRPT ---
EXAM DATE/TIME: 08/18/2017 12:39 [facility] COMPARISON: No previous studies available for comparison. INDICATIONS : Shortness of breath. MEDICAL HISTORY : Hypertension. Carcinoma, prostatic. Carcinoma, liver SURGICAL HISTORY : Infusaport ENCOUNTER: Initial ACUITY: 1 day PAIN SCORE: 0/10 LOCATION: Bilateral chest FINDINGS: The lungs are hypoaerated but otherwise clear. There is no evidence of pneumothorax. Right-sided Infu se-a-Port catheter is noted in place. The heart and mediastinal structures are unremarkable. CONCLUSION: 1. Hypoaerated lungs. 2. No evidence of acute air space disease or pneumothorax. 3. Right-sided Sirbah-h-Mgvm. Elliott Hogan MD on August 18, 2017 at 12:58 Board Certified Radiologist. This report was verified electronically.
[2017-08-18 13:10] LABS: AUTOMATED NEUTROPHIL # 11.3 TH/MM3 (1.8-7.7); BASOPHIL # 0.1 TH/MM3 (0-0.2); BASOPHIL % 0.5 % (0.0-2.0); EOSINOPHIL # 0.1 TH/MM3 (0-0.4); EOSINOPHIL % 0.8 % (0.0-4.0); HEMATOCRIT 30.3 % (39.0-51.0); HEMOGLOBIN 9.6 GM/DL (13.0-17.0); LYMPH % 14.1 % (9.0-44.0); LYMPHOCYTE # 2.3 TH/MM3 (1.0-4.8); MEAN CELL VOLUME 76.5 FL (80.0-100.0); MEAN CORPUSCULAR HEMOGLOBIN 24.2 PG (27.0-34.0); MEAN CORPUSCULAR HGB CONC 31.6 % (32.0-36.0); MEAN PLATELET VOLUME 7.6 FL (7.0-11.0); MONO % 15.1 % (0.0-8.0); MONOCYTE # 2.5 TH/MM3 (0-0.9); NEUT % 69.5 % (16.0-70.0); PLATELET COUNT 719 TH/MM3 (150-450); RED BLOOD COUNT 3.97 MIL/MM3 (4.50-5.90); RED CELL DISTRIBUTION WIDTH 19.5 % (11.6-17.2); WHITE BLOOD COUNT 16.2 TH/MM3 (4.0-11.0)
[2017-08-18 13:14] LABS: INTERNATIONAL NORMALIZED RATIO 1.2 RATIO
[2017-08-18 13:16] VITALS: BP 137/72; PULSE 96; RESP 18; O2SAT 99
[2017-08-18 13:20] LABS: AST (GOT) 77 U/L (15-37); BICARBONATE 21.4 MEQ/L (21.0-32.0); BLOOD UREA NITROGEN 24 MG/DL (7-18); CHLORIDE 100 MEQ/L (98-107); CREATININE 0.95 MG/DL (0.60-1.30); GLOMERULAR FILTRATION RATE 96 ML/MIN (>89); GLUCOSE,RANDOM 88 MG/DL (74-106); SODIUM (NA) 131 MEQ/L (136-145)
[2017-08-18 13:22] LABS: ALT (GPT) 53 U/L (12-78)
[2017-08-18 13:25] LABS: ALKALINE PHOSPHATASE 927 U/L (45-117); TOTAL BILIRUBIN ADULT 1.3 MG/DL (0.2-1.0); TOTAL PROTEIN 6.9 GM/DL (6.4-8.2)
[2017-08-18] MEDS ORDERED: IOHEXOL 350 MG/ML 10 ML VIAL (for RAD DIAG) IVCONTRAST ONE (13:58)
[2017-08-18 14:02] LABS: BANDS 34 % (0-6); LYMPHOCYTES 3 % (9-44); METAMYELOCYTES 2 % (0-1); MONOCYTES 10 % (0-8); NEUTROPHIL # MANUAL DIFF 13.8 TH/MM3 (1.8-7.7); POLYS (SEG NEUTROPHILS) 49 % (16-70)
[2017-08-18 14:06] LABS: TARGET CELLS 1+ (NORMAL)
[2017-08-18 14:07] LABS: ACANTHOCYTES OCC (NORMAL)
--- NOTE | 2017-08-18 14:08 | RADRPT ---
EXAM DATE/TIME: 08/18/2017 13:25 [facility] COMPARISON: No previous studies available for comparison. INDICATIONS : Leg swelling. MEDICAL HISTORY : Hypertension. Prostate cancer. SURGICAL HISTORY : None. ENCOUNTER: Initial ACUITY: 3 days PAIN SCORE: 0/10 LOCATION: Bilateral legs TECHNIQUE: Venous ultrasound of the left and right leg was performed from the inguinal ligament to the proximal calf. Real-time, color Doppler and spectral tracing, compression and augmentation techniques were us ed. FINDINGS: RIGHT LEG: There is normal compressibility of the deep venous system from the inguinal region to the proximal ca lf. No echogenic clot is seen in the lumen of the common femoral, femoral, popliteal, and posterior tibial veins. There is a normal response of the venous system to proximal and distal augmentation an d respiration. LEFT LEG: There is normal compressibility of the deep venous system from the inguinal region to the proximal ca lf. No echogenic clot is seen in the lumen of the common femoral, femoral, popliteal, and posterior tibial veins. There is a normal response of the venous system to proximal and distal augmentation an d respiration. CONCLUSION: Normal examination. Lobito Cash MD on August 18, 2017 at 14:07 Board Certified Radiologist. This report was verified electronically.
--- NOTE | 2017-08-18 14:14 | RADRPT ---
EXAM DATE/TIME: 08/18/2017 13:52 [facility] COMPARISON: No previous studies available for comparison. INDICATIONS : Abdominal pain, hematuria, burning while urination. IV CONTRAST: 94 cc Omnipaque 350 (iohexol) IV ORAL CONTRAST: No oral contrast ingested. RADIATION DOSE: 8.71 CTDIvol (mGy) MEDICAL HISTORY : Hypertension. Liver cancer SURGICAL HISTORY : None. ENCOUNTER: Initial ACUITY: 1 day PAIN SCALE: 0/10 LOCATION: lower abdomen TECHNIQUE: Volumetric scanning of the abdomen and pelvis was performed. Using automated exposure control and ad justment of the mA and/or kV according to patient size, radiation dose was kept as low as reasonably achievable to obtain optimal diagnostic quality images. DICOM format image data is available electro nically for review and comparison. FINDINGS: LOWER LUNGS: Mild scarring right lung base. LIVER: Widespread metastatic disease scattered throughout the liver. The metastatic disease occupies the low er 50% of the volume of the liver. The wall the gallbladder is partially calcified with some internal debris could be stones. Edema disease around the gallbladder fossa gallbladder carcinoma would be wi thin the differential. There is no dilation of the biliary tree. Portal vein is patent. SPLEEN: Normal size without lesion. PANCREAS: Within normal limits. KIDNEYS: Normal in size and shape. There is no mass, stone or hydronephrosis. ADRENAL GLANDS: Within normal limits. VASCULAR: There is no aortic aneurysm. BOWEL/MESENTERY: There is extensive fluid throughout the abdomen and pelvis. The stomach, small bowel, and colon demon strate no acute abnormality. There is no free intraperitoneal air or fluid. ABDOMINAL WALL: Within normal limits. RETROPERITONEUM: There is no lymphadenopathy. BLADDER: No wall thickening or mass. Prostatic seeds REPRODUCTIVE: Within normal limits. INGUINAL: There is no lymphadenopathy or hernia. MUSCULOSKELETAL: Within normal limits for patient age. CONCLUSION: Widespread metastatic disease catheter in the liver. Partially calcified gallbladder wall with some i nternal debris likely stones. With the amount of disease around the gallbladder fossa within the live r, gallbladder carcinoma would be within the differential. The pancreas kidneys adrenal glands are u nremarkable. Extensive ascites. Lobito Cash MD on August 18, 2017 at 14:09 Board Certified Radiologist. This report was verified electronically.
[2017-08-18 14:46] LABS: BACTERIA, URINE MOD /hpf; BILIRUBIN, URINE NEG (NEG); BLOOD, URINE LARGE (NEG); GLUCOSE,URINE NEG (NEG); KETONE, URINE NEG (NEG); NITRITE,URINE POS (NEG); SQUAMOUS EPITHELIAL CELL URINE 7 /hpf (0-5); URINE COLOR YELLOW (YELLW/STRAW); URINE LEUKOCYTE ESTERASE LARGE (NEG); WHITE BLOOD CELL CLUMPS MANY
[2017-08-18] MEDS ORDERED: cefTRIAXone INJ 1,000 MG in SODIUM CHLORIDE 0.9% INJ 100 ML IV ONE (15:00)
[2017-08-18] MEDS ORDERED: NALOXONE HCL 0.4 MG/ML AMP IV PUSH PRN ×2 (15:30→18:45)
[2017-08-18] MEDS ORDERED: BISACODYL 10 MG SUPP RECTAL PRN (15:30)
[2017-08-18] MEDS ORDERED: SENNOSIDES 8.6 MG TAB PO PRN (15:30)
[2017-08-18] MEDS ORDERED: LACTULOSE SYRUP 20 GM/30 ML CUP PO PRN (15:30)
[2017-08-18] MEDS ORDERED: MAGNESIUM HYDROXIDE SUSP 30 ML CUP PO PRN (15:30)
[2017-08-18 15:40] VITALS: BP 132/74; PULSE 101; RESP 18; O2SAT 99
[2017-08-18] MEDS: SODIUM CHLOR 0.9% 1000 ML INJ 1,000 ML IV SCH ×2 (15:41→23:46)
[2017-08-18] MEDS: PIPERACIL-TAZO 3.375 GM PREMIX 50 ML IV SCH ×2 (15:43→21:25)
[2017-08-18] MEDS: HEPARIN SODIUM - SQ 10,000 UNITS/ML VIAL SQ SCH (15:43)
[2017-08-18 18:00] VITALS: BP 153/72; PULSE 94; RESP 18; TEMP 97.5; O2SAT 98
[2017-08-18] MEDS ORDERED: ACETAMINOPHEN/HYDROcodone 325 MG/7.5 MG TAB PO PRN (18:45)
[2017-08-18] MEDS ORDERED: ACETAMINOPHEN/HYDROcodone 325 MG/5 MG TAB PO PRN (18:45)
--- NOTE | 2017-08-18 19:04 | HHI.HP ---
[facility] Unknown Admission Diagnosis UTI, sepsis, metastatic adenocarcinoma Diagnoses: Travel History International Travel<30 Days: No Contact w/Intl Traveler <30 Da: No Traveled to Known Affected Are: No History of Present Illness 67-year-old male with a history of 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 Most recent chemotherapy with Gemzar on August 09. He also reports 3-4 days of worsening abdominal distention, however without increase in abdominal pain. He also reports 2 days of worsening bilateral lower extremity edema. He denies any fevers or chills. Denies any nausea or vomiting. Does report being constipated , however says this is resolved. Review of Systems Except as stated in HPI: all other systems reviewed are Neg Past Family Social History Past Medical History Metastatic adenocarcinoma of unknown primary. Hypertension Kidney disease Prostatic hyperplasia Past Surgical History Port placement Biopsy of liver. Reported Medications Reported Meds & Active Scripts Active Reported [place] (Hydrocodone-Acetaminophen) 5 Mg-325 Mg Tab 1 Tab PO Q4H PRN Allergies: Coded Allergies: No Known Allergies (Unverified , 08/18/17) Family History Family history reviewed with patient and found to be currently noncontributory Social History Patient smoked for 2 years, but quit 30 years ago. Patient reports quit drinking 3 months ago. Denies any illicit drugs. Physical Exam Vital Signs Vital Signs Date Time Temp Pulse Resp B/P (MAP) Pulse Ox O2 Delivery O2 Flow Rate FiO2 08/18/17 18:00 97.5 94 18 153/72 (99) 98 08/18/17 17:19 08/18/17 15:40 101 18 132/74 (93) 99 Room Air 08/18/17 13:16 96 18 137/72 (93) 99 Room Air 08/18/17 10:44 107 20 08/18/17 10:40 98.2 107 18 135/77 (96) 97 Physical Exam GENERAL: This is a well-nourished, well-developed patient, who appears comfortable. Alert and oriented 3. SKIN: No rashes, ecchymoses or lesions. Cool and dry. HEAD: Atraumatic. Normocephalic. No temporal or scalp tenderness. EYES: Pupils equal round and reactive. Extraocular motions intact. No scleral icterus. No injection or drainage. ENT: Nose without bleeding, purulent drainage or septal hematoma. Throat without erythema, tonsillar hypertrophy or exudate. Uvula midline. Airway patent. NECK: Trachea midline. No JVD. Supple, nontender, no meningeal signs. CARDIOVASCULAR: Regular rate and rhythm without murmurs, gallops, or rubs. RESPIRATORY: Clear to auscultation. Breath sounds equal bilaterally. No wheezes , rales, or rhonchi. GASTROINTESTINAL: Abdomen distended, nontender, with positive fluid wave. No rebound or guarding. MUSCULOSKELETAL: Extremities without clubbing, cyanosis. No joint tenderness, effusion.No calf tenderness. Negative Homans sign bilaterally. Patient has 2+ bilateral lower extremity edema. No erythema or broken skin. NEUROLOGICAL: Awake and alert. Cranial nerves II through XII intact. Motor and sensory grossly within normal limits. Five out of 5 muscle strength in all muscle groups. Normal speech. Laboratory Laboratory Tests Test 08/18/17 12:00 08/18/17 14:25 08/18/17 15:05 White Blood Count 16.2 Red Blood Count 3.97 Hemoglobin 9.6 Hematocrit 30.3 Mean Corpuscular Volume 76.5 Mean Corpuscular Hemoglobin 24.2 Mean Corpuscular Hemoglobin Concent 31.6 Red Cell Distribution Width 19.5 Platelet Count 719 Mean Platelet Volume 7.6 Neutrophils (%) (Auto) 69.5 Lymphocytes (%) (Auto) 14.1 Monocytes (%) (Auto) 15.1 Eosinophils (%) (Auto) 0.8 Basophils (%) (Auto) 0.5 Neutrophils # (Auto) 11.3 Lymphocytes # (Auto) 2.3 Monocytes # (Auto) 2.5 Eosinophils # (Auto) 0.1 Basophils # (Auto) 0.1 CBC Comment AUTO DIFF Differential Total Cells Counted 100 Neutrophils % (Manual) 49 Band Neutrophils % 34 Lymphocytes % 3 Monocytes % 10 Eosinophils % 2 Neutrophils # (Manual) 13.8 Metamyelocytes 2 Differential Comment FINAL DIFF MANUAL Platelet Estimate HIGH Platelet Morphology Comment NORMAL Target Cells 1+ Acanthocytes OCC Prothrombin Time 12.0 Prothromb Time International Ratio 1.2 Activated Partial Thromboplast Time 30.0 Blood Urea Nitrogen 24 Creatinine 0.95 Random Glucose 88 Total Protein 6.9 Albumin 2.0 Calcium Level 9.0 Alkaline Phosphatase 927 Aspartate Amino Transf (AST/SGOT) 77 Alanine Aminotransferase (ALT/SGPT) 53 Total Bilirubin 1.3 Sodium Level 131 Potassium Level 4.7 Chloride Level 100 Carbon Dioxide Level 21.4 Anion Gap 10 Estimat Glomerular Filtration Rate 96 B-Type Natriuretic Peptide 26 Urine Color YELLOW Urine Turbidity CLOUDY Urine pH 8.0 Urine Specific [place] 1.025 Urine Protein 100 Urine Glucose (UA) NEG Urine Ketones NEG Urine Occult Blood LARGE Urine Nitrite POS Urine Bilirubin NEG Urine Urobilinogen LESS THAN 2.0 Urine Leukocyte Esterase LARGE Urine RBC 120 Urine WBC Urine WBC Clumps MANY Urine Squamous Epithelial Cells 7 Urine Bacteria MOD Microscopic Urinalysis Comment CULTURE INDICATED Lactic Acid Level 1.6 Date/Time Source Procedure Growth Status 08/18/17 15:05 Blood Peripheral Aerobic Blood Culture Pending Received 08/18/17 15:05 Blood Peripheral Anaerobic Blood Culture Pending Received 08/18/17 14:25 Urine Clean Catch Urine Culture Pending Received Result Diagram: 08/18/17 1200 08/18/17 1200 Caprini VTE Risk Assessment Caprini VTE Risk Assessment: Mod/High Risk (score >= 2) Caprini Risk Assessment Model Point Value = 1 Point Value = 2 Point Value = 3 Point Value = 5 Age 41-60 Minor surgery BMI > 25 kg/m2 Swollen legs Varicose veins or History of unexplained or recurrent spontaneous Oral contraceptives or hormone replacement Sepsis (< 1 month) Serious lung disease, including pneumonia (< 1 month) Abnormal pulmonary function Acute myocardial infarction Congestive heart failure (< 1 month) History of inflammatory bowel disease Medical patient at bed rest Age 61-74 Arthroscopic surgery Major open surgery (> 45 min) Laparoscopic surgery (> 45 min) Malignancy Confined to bed (> 72 hours) Immobilizing plaster cast Central venous access Age >= 75 History of VTE Family history of VTE Factor V Leiden Prothrombin 48835A Lupus anticoagulant Anticardiolipin antibodies Elevated serum homocysteine Heparin-induced thrombocytopenia Other congenital or acquired thrombophilia Stroke (< 1 month) Elective arthroplasty Hip, pelvis, or leg fracture Acute spinal cord injury (< 1 month) Prophylaxis Regimen Total Risk Factor Score Risk Level Prophylaxis Regimen 0-1 Low Early ambulation 2 Moderate Order ONE of the following: *Sequential Compression Device (SCD) *Heparin 5000 units SQ BID 3-4 Higher Order ONE of the following medications: *Heparin 5000 units SQ TID *Enoxaparin/Lovenox 40 mg SQ daily (WT < 150 kg, CrCl > 30 mL/min) *Enoxaparin/Lovenox 30 mg SQ daily (WT < 150 kg, CrCl > 10-29 mL/min) *Enoxaparin/Lovenox 30 mg SQ BID (WT < 150 kg, CrCl > 30 mL/min) AND/OR *Sequential Compression Device (SCD) 5 or more Highest Order ONE of the following medications: *Heparin 5000 units SQ TID (Preferred with Epidurals) *Enoxaparin/Lovenox 40 mg SQ daily (WT < 150 kg, CrCl > 30 mL/min) *Enoxaparin/Lovenox 30 mg SQ daily (WT < 150 kg, CrCl > 10-29 mL/min) *Enoxaparin/Lovenox 30 mg SQ BID (WT < 150 kg, CrCl > 30 mL/min) AND *Sequential Compression Device (SCD) Assessment and Plan Assessment and Plan //Sepsis Leukocytosis, tachycardia, UTI with white blood cell clumps on urinalysis. -Possible UTI versus prostatitis -Lactic acid 1.6 PSA pending Started on broad-spectrum antibiotics. IV fluids -Follow-up blood cultures, urine culture. //Obstructive uropathy. Mont[place] placed. PSA pending for possible prostatitis. //Metastatic adenocarcinoma of unknown primary. -Undergoing chemotherapy. Consult patient's primary oncologist. //Hyponatremia. Sodium 131. Chronic. Appears stable from baseline. Continue to monitor. //anasarca. //Ascites //Bilateral lower extremity edema likely secondary to malnutrition, fluid overload secondary to urinary retention = BNP within normal limits. = Elevate extremities as able. Enlive supplement ordered. //Transaminitis. Likely secondary to liver metastasis. Bilirubin elevation as well. This appears better than baseline. No signs of biliary infection. //Chronic anemia. Hemoglobin 9.6. Around baseline. Continue to monitor. Discussed Condition With Patient, nurse, ED physician. Physician Certification 2 Midnight Certification Type: Admission for Inpatient Services Order for Inpatient Services The services are ordered in accordance with Medicare regulations or non- Medicare payer requirements, as applicable. In the case of services not specified as inpatient-only, they are appropriately provided as inpatient services in accordance with the 2-midnight benchmark. Estimated LOS (days): 2 days is the estimated time the patient will need to remain in the hospital, assuming treatment plan goals are met and no additional complications. Post-Hospital Plan: Not yet determined Rojelio Brown MD Aug 18, 2017 19:04
[2017-08-18 20:00] VITALS: BP 120/71; PULSE 107; RESP 20; TEMP 98.4; O2SAT 99
[2017-08-18] MEDS: SODIUM CHLORIDE 0.9% FLUSH 10 ML FLUSH IV FLUSH SCH (21:00)
[2017-08-19] VITALS: BP 121/68; PULSE 85; RESP 18; TEMP 98.3; O2SAT 98
[2017-08-19] MEDS: PIPERACIL-TAZO 3.375 GM PREMIX 50 ML IV SCH ×4 (04:04→20:55)
[2017-08-19] MEDS: HEPARIN SODIUM - SQ 10,000 UNITS/ML VIAL SQ SCH ×2 (04:05→16:19)
[2017-08-19 05:18] LABS: ALBUMIN 1.6 GM/DL (3.4-5.0); ALKALINE PHOSPHATASE 791 U/L (45-117); ALT (GPT) 45 U/L (12-78); AST (GOT) 62 U/L (15-37); BICARBONATE 21.2 MEQ/L (21.0-32.0); BLOOD UREA NITROGEN 20 MG/DL (7-18); CALCIUM 8.2 MG/DL (8.5-10.1); CHLORIDE 104 MEQ/L (98-107); CREATININE 0.76 MG/DL (0.60-1.30); GLOMERULAR FILTRATION RATE 125 ML/MIN (>89); GLUCOSE,RANDOM 81 MG/DL (74-106); SODIUM (NA) 136 MEQ/L (136-145); TOTAL BILIRUBIN ADULT 1.2 MG/DL (0.2-1.0)
[2017-08-19 08:00] VITALS: BP 128/78; PULSE 101; RESP 22; TEMP 96.8; O2SAT 99
[2017-08-19 08:07] LABS: TOTAL PROTEIN 5.8 GM/DL (6.4-8.2)
[2017-08-19] MEDS: SODIUM CHLORIDE 0.9% FLUSH 10 ML FLUSH IV FLUSH SCH ×2 (08:43→21:00)
--- NOTE | 2017-08-19 10:27 | HHI.PR ---
Subjective Remarks Follow-up sepsis/UTI/bilateral extremity edema 08/19/17-patient seen and examined, currently afebrile and denies any chest pain or shortness of breath. Still complains of swelling lower extremities. Increased urine output. Objective Vitals Vital Signs Date Time Temp Pulse Resp B/P (MAP) Pulse Ox O2 Delivery O2 Flow Rate FiO2 08/19/17 08:00 96.8 101 22 128/78 (95) 99 08/19/17 00:00 98.3 85 18 121/68 (85) 98 08/18/17 20:00 98.4 107 20 120/71 (87) 99 08/18/17 18:00 97.5 94 18 153/72 (99) 98 08/18/17 17:19 08/18/17 15:40 101 18 132/74 (93) 99 Room Air 08/18/17 13:16 96 18 137/72 (93) 99 Room Air 08/18/17 10:44 107 20 08/18/17 10:40 98.2 107 18 135/77 (96) 97 I/O 08/18/17 08/18/17 08/18/17 08/19/17 08/19/17 08/19/17 07:00 15:00 23:00 07:00 15:00 23:00 Intake Total 150 ml 550 ml 925 ml Output Total 60 ml 400 ml Balance 90 ml 150 ml 925 ml Intake IV Total 150 ml 550 ml 925 ml Output Urine Total 60 ml 400 ml # Voids 1 0 Result Diagram: 08/18/17 1200 08/19/17 0345 Imaging Last Impressions Chest X-Ray 08/18/17 1208 Signed Impressions: Service Date/Time: August 12:39 - CONCLUSION: 1. Hypoaerated lungs. 2. No evidence of acute air space disease or pneumothorax. 3. Right- sided [id number]. Elliott Hogan MD Abdomen/Pelvis CT 08/18/17 1208 Signed Impressions: Service Date/Time: August 13:52 - CONCLUSION: Widespread metastatic disease catheter in the liver. Partially calcified gallbladder wall with some internal debris likely stones. With the amount of disease around the gallbladder fossa within the liver, gallbladder carcinoma would be within the differential. The pancreas kidneys adrenal glands are unremarkable. Extensive ascites. Lobito Cash MD Lower Extremity Ultrasound 08/18/17 0000 Signed Impressions: Service Date/Time: August 13:25 - CONCLUSION: Normal examination. Lobito Cash MD Objective Remarks GENERAL: NAD SKIN: Warm and dry. HEAD: Normocephalic. EYES: No scleral icterus. No injection or drainage. NECK: Supple, trachea midline. No JVD or lymphadenopathy. CARDIOVASCULAR: Regular rate and rhythm without murmurs, gallops, or rubs. RESPIRATORY: Breath sounds equal bilaterally. No accessory muscle use. GASTROINTESTINAL: Abdomen soft, non-tender, nondistended. MUSCULOSKELETAL: No cyanosis; +2 edema BLE. BACK: Nontender without obvious deformity. No CVA tenderness. A/P Problem List: (1) Bilateral lower extremity edema ICD Code: R60.0 - Localized edema (2) Sepsis ICD Code: A41.9 - Sepsis, unspecified organism Status: Acute (3) Urinary tract infection ICD Code: N39.0 - Urinary tract infection, site not specified Status: Acute (4) Metastatic adenocarcinoma ICD Code: C79.9 - Secondary malignant neoplasm of unspecified site Status: Acute Assessment and Plan 67-year-old man with Sepsis Urinary tract infection Currently on Zosyn pending culture report Check urine Legionella and pneumococcal antigens Obstructive uropathy Resolved HLIV PSA within normal limits Metastatic adenocarcinoma of unknown primary. Undergoing chemotherapy. Consult patient's primary oncologist. Hyponatremia Resolved anasarca. Ascites Bilateral lower extremity edema likely secondary to malnutrition, fluid overload secondary to urinary retention Lasix Q every other day Transaminitis. Likely secondary to liver metastasis. Bilirubin elevation as well. This appears better than baseline. No signs of biliary infection. Chronic anemia chronic disease H&H and continue to monitor Problem Qualifiers (1) Sepsis: Qualified Codes: A41.9 - Sepsis, unspecified organism (2) Urinary tract infection: Qualified Codes: N30.01 - Acute cystitis with hematuria Antonio Beltran MD Aug 19, 2017 10:27
[2017-08-19] MEDS ORDERED: ACETAMINOPHEN 325 MG TAB PO PRN (10:30)
[2017-08-19] MEDS ORDERED: ONDANSETRON HCL 4 MG/2 ML VIAL IV PUSH PRN (10:30)
[2017-08-19] MEDS ORDERED: TEMAZEPAM 15 MG CAP PO PRN (10:30)
[2017-08-19 12:00] VITALS: BP 123/69; PULSE 94; RESP 16; TEMP 96.3; O2SAT 100
[2017-08-19] MEDS: FUROSEMIDE 20 MG/2 ML VIAL IV PUSH SCH (12:47)
[2017-08-19 16:00] VITALS: BP 134/75; PULSE 90; RESP 18; TEMP 97.4; O2SAT 98
[2017-08-19 20:00] VITALS: BP 123/72; PULSE 115; RESP 19; TEMP 97.2; O2SAT 96
[2017-08-20 00:20] VITALS: BP 134/75; PULSE 88; RESP 19; TEMP 98.1; O2SAT 98
--- NOTE | 2017-08-20 01:54 | MB ---
cc: Ray Plummer MD DATE OF CONSULT: 08/19/2017 REASON FOR CONSULTATION: Patient with a history of stage IV adenocarcinoma of unknown primary who presents to the emergency department with hematuria, urinary retention, dysuria, poor oral intake and abdominal distention. HISTORY OF PRESENT ILLNESS: This is a 66-year-old male who was recently diagnosed with widely metastatic malignancy of unknown primary. He underwent needle guided biopsy of the liver mets on 07/09/2017. This was moderately differentiated adenocarcinoma. The tumor's immunophenotype was nonspecific and it was thought that this could be either pancreatobiliary or upper GI. Pathology thought that lung was less likely. The patient was found to have diffusely metastatic disease based on the PET scan involving his lung and liver. There were hypermetabolic lesions in the right lung. In the abdomen there were numerous lesions in the liver that were highly hypermetabolic. There were also hypermetabolic lesions seen in the left aortic and deep pelvic. The patient was started on systemic chemotherapy consisting of carboplatin and Gemzar. He has received 1 cycle of this treatment. He has poor performance status and he was quite frail. These treatments have been given to him at a reduced dose. He now presents to the emergency department with abdominal distention, hematuria, dysuria and urinary retention. On admission the patient had CT imaging of the abdomen and pelvis. This revealed widespread metastatic disease throughout the liver which was already known. The metastatic disease occupies the lower ____. The patient was also found to have extensive ascites. On admission the patient had a UA which was positive for occult blood, positive for nitrite and leukocyte esterase consistent with a UTI. Urine cultures are pending. He was started on antibiotics. He is currently on Zosyn. The patient was also dehydrated and has been getting IV hydration. For urinary obstruction a Montoya catheter was placed with good urine return. His urine has now cleared and there is no apparent hematuria. The patient also had bilateral lower extremity edema. Today the patient feels somewhat better but he is still quite weak. He says that he has abdominal distention but does not endorse any pain in the abdomen. He is asking me when he can leave the hospital. REVIEW OF SYSTEMS: A comprehensive review of systems is completed which is negative except as noted in the HPI. PAST MEDICAL HISTORY: Stage IV adenocarcinoma of unknown primary, hypertension, chronic kidney disease, enlarged prostate. PAST SURGICAL HISTORY: History of port placement, biopsy of the liver. MEDICATIONS: Restoril 15 mg p.o. at bedtime, Lasix 20 mg IV as needed, Steens 5/325 p.o. q. 4 hours p.r.n., Zosyn, milk of magnesia p.r.n., lactolose p.r.n. ALLERGIES: NO KNOWN DRUG ALLERGIES. FAMILY HISTORY: Reviewed and is non-contributory to this admission. SOCIAL HISTORY: He is . He does not smoke cigarettes. He has a remote history of smoking cigarettes for 2 years but he quit 30 years ago. He does not drink alcohol. No illicit drug use. PHYSICAL EXAMINATION: VITAL SIGNS: Blood pressure is 123/72, pulse is in the 100s, temperature is 97.2, O2 sats are 96% on room air. GENERAL: Chronically ill appearing male in no apparent distress. HEENT: Pupils equal, round and reactive to light, EOMI. No thrush, no lesions. NECK: Supple. No JVD, no bruits. No lymphadenopathy. CHEST: Clear to auscultation bilaterally. CARDIAC: S1, S2, regular rate and rhythm. ABDOMEN: Somewhat distended. Bowel sounds are decreased. There is tenderness in the right upper quadrant. No rebound or guarding. EXTREMITIES: Bilateral 1+ edema. NEUROLOGIC: No focal deficits. PSYCHIATRIC: Mood and affect are appropriate. SKIN: Without any petechiae, ____ or bruises. LABORATORY DATA: WBC 16.2, hemoglobin is 9.6, platelet count is 719. Sodium 136, potassium 4.2, chloride 104, BUN is 20, creatinine is 0.76, lactic acid is 1.6, calcium 8.2, total bilirubin 1.2, AST 62, ALT is 45, alk phos 791, BNP 26, albumin is 1.6, PSA is 0.06. ASSESSMENT AND PLAN: This is a 67-year-old male with the diagnosis of stage IV adenocarcinoma of unknown primary, likely pancreatobiliary or gastrointestinal. He is being treated with systemic chemotherapy. He presents to the emergency department with hematuria, urinary obstruction, feeling unwell and abdominal distention. 1. Urinary obstruction and hematuria. He has underlying urinary tract infection. I agree with Zosyn. Urine cultures are growing gram negative rods. Speciation and sensitivities are pending. Blood cultures do not show any growth after 24 hours. He has a Montoya in place with good urine flow. On CT of the abdomen and pelvis there was not any physical obstruction of the ureters or bladder. 2. Dehydration. Agree with intravenous fluids. 3. Pain control. He is currently on Steens and his pain appears to be under control. 4. Elevated liver functions and total bilirubin secondary to metastatic disease. 5. Hypoalbuminemia and malnutrition. Albumin is 1.6. I encourage oral intake. Supplement diet with Ensure or Boost t.i.d. with meals. Dietitian consult. 6. Anemia. Hemoglobin is 9.6. He was found to be iron deficient previously. He has been getting iron infusions. No transfusion is indicated at this time. 7. Thrombocythemia with elevated platelet count likely reactive. 8. Stage IV adenocarcinoma of unknown primary. Given his borderline performance status and metastatic disease his prognosis is poor. After his discharge he will follow up with the oncology clinic to determine if additional systemic chemotherapy can be given. Thank you for allowing me to participate in the care of this patient. The oncology team will continue to see this patient over the weekend. MD CHARLOTTE Nash/rt , 10:22 PM , 01:52 AM
[2017-08-20] MEDS: PIPERACIL-TAZO 3.375 GM PREMIX 50 ML IV SCH ×4 (04:06→21:46)
[2017-08-20] MEDS: HEPARIN SODIUM - SQ 10,000 UNITS/ML VIAL SQ SCH ×2 (04:07→16:11)
[2017-08-20 08:00] VITALS: BP 117/78; PULSE 108; RESP 18; TEMP 97.3; O2SAT 99
[2017-08-20] MEDS: SODIUM CHLORIDE 0.9% FLUSH 10 ML FLUSH IV FLUSH SCH ×2 (08:41→19:30)
[2017-08-20 10:02] LABS: AUTOMATED NEUTROPHIL # 17.6 TH/MM3 (1.8-7.7); BASOPHIL # 0.1 TH/MM3 (0-0.2); BASOPHIL % 0.3 % (0.0-2.0); EOSINOPHIL # 0.1 TH/MM3 (0-0.4); EOSINOPHIL % 0.5 % (0.0-4.0); HEMATOCRIT 28.5 % (39.0-51.0); HEMOGLOBIN 9.1 GM/DL (13.0-17.0); LYMPH % 5.8 % (9.0-44.0); LYMPHOCYTE # 1.3 TH/MM3 (1.0-4.8); MEAN CELL VOLUME 75.5 FL (80.0-100.0); MEAN CORPUSCULAR HEMOGLOBIN 24.1 PG (27.0-34.0); MEAN PLATELET VOLUME 7.3 FL (7.0-11.0); MONO % 13.9 % (0.0-8.0); MONOCYTE # 3.1 TH/MM3 (0-0.9); NEUT % 79.5 % (16.0-70.0); PLATELET COUNT 786 TH/MM3 (150-450); RED BLOOD COUNT 3.78 MIL/MM3 (4.50-5.90); RED CELL DISTRIBUTION WIDTH 19.7 % (11.6-17.2); WHITE BLOOD COUNT 22.1 TH/MM3 (4.0-11.0)
[2017-08-20 10:25] LABS: ALBUMIN 1.7 GM/DL (3.4-5.0); ALKALINE PHOSPHATASE 684 U/L (45-117); ALT (GPT) 33 U/L (12-78); AST (GOT) 47 U/L (15-37); BICARBONATE 21.8 MEQ/L (21.0-32.0); BLOOD UREA NITROGEN 18 MG/DL (7-18); CALCIUM 8.4 MG/DL (8.5-10.1); CHLORIDE 105 MEQ/L (98-107); CREATININE 0.98 MG/DL (0.60-1.30); GLOMERULAR FILTRATION RATE 93 ML/MIN (>89); GLUCOSE,RANDOM 113 MG/DL (74-106); SODIUM (NA) 138 MEQ/L (136-145); TOTAL BILIRUBIN ADULT 0.9 MG/DL (0.2-1.0)
[2017-08-20 10:43] LABS: BANDS 7 % (0-6); LYMPHOCYTES 1 % (9-44); MONOCYTES 12 % (0-8); NEUTROPHIL # MANUAL DIFF 19.2 TH/MM3 (1.8-7.7); POLYS (SEG NEUTROPHILS) 80 % (16-70)
[2017-08-20 10:44] LABS: TARGET CELLS 2+ (NORMAL)
[2017-08-20 10:49] LABS: TOXIC VACUOLATION PRESENT (NONE SEEN)
--- NOTE | 2017-08-20 11:30 | HHI.PR ---
Subjective Remarks Follow-up sepsis/UTI/bilateral extremity edema 08/19/17-patient seen and examined, currently afebrile and denies any chest pain or shortness of breath. Still complains of swelling lower extremities. Increased urine output. 08/20/17-patient seen and examined, no complaint and stable. WBC worsening Objective Vitals Vital Signs Date Time Temp Pulse Resp B/P (MAP) Pulse Ox O2 Delivery O2 Flow Rate FiO2 08/20/17 08:00 97.3 108 18 117/78 (91) 99 08/20/17 00:20 98.1 88 19 134/75 (94) 98 08/19/17 20:00 97.2 115 19 123/72 (89) 96 08/19/17 16:00 97.4 90 18 134/75 (94) 98 08/19/17 12:00 96.3 94 16 123/69 (87) 100 I/O 08/19/17 08/19/17 08/19/17 08/20/17 08/20/17 08/20/17 07:00 15:00 23:00 07:00 15:00 23:00 Intake Total 550 ml 925 ml 1600 ml 600 ml Output Total 400 ml 800 ml Balance 150 ml 925 ml 800 ml 600 ml Intake Oral 1600 ml 600 ml IV Total 550 ml 925 ml Output Urine Total 400 ml 800 ml # Voids 0 5 # Bowel Movements 3 5 Result Diagram: 08/20/17 0942 08/20/17 0942 Objective Remarks GENERAL: NAD SKIN: Warm and dry. HEAD: Normocephalic. EYES: No scleral icterus. No injection or drainage. NECK: Supple, trachea midline. No JVD or lymphadenopathy. CARDIOVASCULAR: Regular rate and rhythm without murmurs, gallops, or rubs. RESPIRATORY: Breath sounds equal bilaterally. No accessory muscle use. GASTROINTESTINAL: Abdomen soft, non-tender, nondistended. MUSCULOSKELETAL: No cyanosis; +1 edema BLE. BACK: Nontender without obvious deformity. No CVA tenderness. Procedures None A/P Problem List: (1) Bilateral lower extremity edema ICD Code: R60.0 - Localized edema (2) Sepsis ICD Code: A41.9 - Sepsis, unspecified organism Status: Acute (3) Urinary tract infection ICD Code: N39.0 - Urinary tract infection, site not specified Status: Acute (4) Metastatic adenocarcinoma ICD Code: C79.9 - Secondary malignant neoplasm of unspecified site Status: Acute Assessment and Plan 67-year-old man with Sepsis Urinary tract infection Leukocytosis-worsening Currently on Zosyn Urine culture for Proteus Mirabilis Urine Legionella and pneumococcal antigens negative Obstructive uropathy Resolved HLIV PSA within normal limits Metastatic adenocarcinoma of unknown primary. Undergoing chemotherapy. Appreciate input from oncologist. Hyponatremia Resolved anasarca. Ascites Bilateral lower extremity edema likely secondary to malnutrition, fluid overload secondary to urinary retention Lasix Q every other day Transaminitis. Likely secondary to liver metastasis. Bilirubin elevation as well. This appears better than baseline. No signs of biliary infection. Chronic anemia chronic disease H&H and continue to monitor Problem Qualifiers (1) Sepsis: Qualified Codes: A41.9 - Sepsis, unspecified organism (2) Urinary tract infection: Qualified Codes: N30.01 - Acute cystitis with hematuria Antonio Beltran MD Aug 20, 2017 11:30
[2017-08-20 12:00] VITALS: BP 125/71; PULSE 91; RESP 17; TEMP 97.2; O2SAT 99
--- NOTE | 2017-08-20 12:00 | PD.ONC.PN ---
Subjective Subjective Remarks Afebrile Patient denies pain Reports he has had a slow flow since he had a diagnosis of prostate cancer Objective Data Date Time Temp Pulse Resp B/P (MAP) Pulse Ox O2 Delivery O2 Flow Rate FiO2 08/20/17 08:00 97.3 108 18 117/78 (91) 99 08/20/17 00:20 98.1 88 19 134/75 (94) 98 08/19/17 20:00 97.2 115 19 123/72 (89) 96 08/19/17 16:00 97.4 90 18 134/75 (94) 98 08/19/17 12:00 96.3 94 16 123/69 (87) 100 08/20/17 08/20/17 08/20/17 07:00 15:00 23:00 Intake Total 600 ml 50 ml Balance 600 ml 50 ml Result Diagram: 08/20/17 0942 08/20/17 0942 Laboratory Results Laboratory Tests Test 08/20/17 09:42 White Blood Count 22.1 TH/MM3 Red Blood Count 3.78 MIL/MM3 Hemoglobin 9.1 GM/DL Hematocrit 28.5 % Mean Corpuscular Volume 75.5 FL Mean Corpuscular Hemoglobin 24.1 PG Mean Corpuscular Hemoglobin Concent 32.0 % Red Cell Distribution Width 19.7 % Platelet Count 786 TH/MM3 Mean Platelet Volume 7.3 FL Neutrophils (%) (Auto) 79.5 % Lymphocytes (%) (Auto) 5.8 % Monocytes (%) (Auto) 13.9 % Eosinophils (%) (Auto) 0.5 % Basophils (%) (Auto) 0.3 % Neutrophils # (Auto) 17.6 TH/MM3 Lymphocytes # (Auto) 1.3 TH/MM3 Monocytes # (Auto) 3.1 TH/MM3 Eosinophils # (Auto) 0.1 TH/MM3 Basophils # (Auto) 0.1 TH/MM3 CBC Comment AUTO DIFF Differential Total Cells Counted 100 Neutrophils % (Manual) 80 % Band Neutrophils % 7 % Lymphocytes % 1 % Monocytes % 12 % Neutrophils # (Manual) 19.2 TH/MM3 Differential Comment FINAL DIFF MANUAL Toxic Vacuolation PRESENT Platelet Estimate HIGH Platelet Morphology Comment NORMAL Target Cells 2+ Blood Urea Nitrogen 18 MG/DL Creatinine 0.98 MG/DL Random Glucose 113 MG/DL Total Protein 6.0 GM/DL Albumin 1.7 GM/DL Calcium Level 8.4 MG/DL Alkaline Phosphatase 684 U/L Aspartate Amino Transf (AST/SGOT) 47 U/L Alanine Aminotransferase (ALT/SGPT) 33 U/L Total Bilirubin 0.9 MG/DL Sodium Level 138 MEQ/L Potassium Level 3.5 MEQ/L Chloride Level 105 MEQ/L Carbon Dioxide Level 21.8 MEQ/L Anion Gap 11 MEQ/L Estimat Glomerular Filtration Rate 93 ML/MIN Culture Results Microbiology Date/Time Source Procedure Growth Status 08/18/17 15:05 Blood Peripheral Aerobic Blood Culture - Preliminary NO GROWTH IN 2 DAYS Resulted 08/18/17 15:05 Blood Peripheral Anaerobic Blood Culture - Preliminary NO GROWTH IN 2 DAYS Resulted 08/18/17 15:00 Blood Peripheral Aerobic Blood Culture - Preliminary NO GROWTH IN 2 DAYS Resulted 08/18/17 15:00 Blood Peripheral Anaerobic Blood Culture - Preliminary NO GROWTH IN 2 DAYS Resulted 08/19/17 15:45 Urine Clean Catch Legionella Antigen - Final PRESUMPTIVE NEGATIVE FOR LEGIONELLA P... Complete 08/19/17 15:45 Urine Clean Catch Streptococcus pneumoniae Antigen (M - Final PRESUMPTIVE NEGATIVE FOR STREPTOCOCCU... Complete 08/18/17 14:25 Urine Clean Catch Urine Culture - Final Proteus Mirabilis Complete Administered Medications Medications (Trade) Dose Ordered Sig/Gena Route PRN Reason Start Time Stop Time Status Last Admin Dose Admin Piperacillin Sod/ Tazobactam Sod 50 ml @ 100 mls/hr Q6H IV 08/18/17 16:00 08/20/17 08:41 Sodium Chloride (NS Flush) 2 ml BID IV FLUSH 08/18/17 21:00 08/20/17 08:41 Heparin Sodium (Porcine) (Heparin Inj) 5,000 units Q12H SQ 08/18/17 16:00 08/20/17 04:07 Furosemide (Lasix Inj) 20 mg EVERY OTHER DAY IV PUSH 08/19/17 10:30 08/19/17 12:47 Objective Remarks GENERAL: Older male sitting up in chair at bedside in no obvious distress SKIN: Warm and dry. HEAD: Normocephalic. EYES: No injection or drainage. NECK: Supple, trachea midline. CARDIOVASCULAR: Regular rate and rhythm without murmurs. RESPIRATORY: Breath sounds equal bilaterally. No accessory muscle use. GASTROINTESTINAL: Abdomen distended. Nontender to palpation EXTREMITIES: Bilateral lower extremity edema. MUSCULOSKELETAL: Adequate muscle tone. NEUROLOGICAL: No obvious focal deficit. Awake, alert, and oriented x3. Assessment/Plan Problem List: (1) Metastatic adenocarcinoma ICD Codes: C79.9 - Secondary malignant neoplasm of unspecified site Status: Acute Plan: -- Metastatic adenocarcinoma of unknown primary -- Patient has known metastatic disease to the liver and lung -- Most recent CT abdomen and pelvis showed gallbladder carcinoma being a possible differential -- Last chemotherapy given on 08/04 with carboplatin and Gemzar -- Pain well controlled (2) Bilateral lower extremity edema ICD Codes: R60.0 - Localized edema Plan: -- Bilateral lower extremity ultrasound negative for DVT -- On Lasix every other day (3) Urinary tract infection ICD Codes: N39.0 - Urinary tract infection, site not specified Status: Acute Plan: -- Micro-shows gram-negative Proteus in urine -- Patient on Zosyn (4) Thrombocythemia ICD Codes: D47.3 - Essential (hemorrhagic) thrombocythemia Plan: -- Likely reactive -- On heparin 5000 units subcutaneous twice a day Assessment 67-year-old male with a diagnosis of adenocarcinoma of unknown primary admitted for urosepsis Plan 1. Continue antibiotics for UTI 2. CT abdomen and pelvis shows ascites; get ultrasound with paracentesis if patient becomes symptomatic. 3. Monitor CBC Problem Qualifiers (1) Urinary tract infection: Qualified Codes: N30.01 - Acute cystitis with hematuria Tanya Owusu Aug 20, 2017 12:00
[2017-08-20 16:00] VITALS: BP 125/70; PULSE 89; RESP 18; TEMP 98.8; O2SAT 99
[2017-08-20 20:00] VITALS: BP 132/67; PULSE 91; RESP 19; TEMP 97.3; O2SAT 97
[2017-08-21] VITALS: BP 136/77; PULSE 91; RESP 20; TEMP 95.6; O2SAT 97
[2017-08-21] MEDS: HEPARIN SODIUM - SQ 10,000 UNITS/ML VIAL SQ SCH ×2 (03:25→14:51)
[2017-08-21] MEDS: PIPERACIL-TAZO 3.375 GM PREMIX 50 ML IV SCH ×4 (03:25→21:22)
[2017-08-21 04:00] VITALS: BP_SYST 131; BP_SYST 134; BP_DIAS 74; BP_DIAS 83; PULSE 83; PULSE 84; RESP 19; RESP 20; TEMP 96.9; TEMP 97.6; O2SAT 93; O2SAT 97
[2017-08-21 07:04] LABS: AUTOMATED NEUTROPHIL # 16.5 TH/MM3 (1.8-7.7); BASOPHIL # 0.1 TH/MM3 (0-0.2); BASOPHIL % 0.4 % (0.0-2.0); EOSINOPHIL # 0.2 TH/MM3 (0-0.4); EOSINOPHIL % 0.9 % (0.0-4.0); HEMATOCRIT 25.9 % (39.0-51.0); HEMOGLOBIN 8.1 GM/DL (13.0-17.0); LYMPH % 6.4 % (9.0-44.0); LYMPHOCYTE # 1.4 TH/MM3 (1.0-4.8); MEAN CELL VOLUME 75.1 FL (80.0-100.0); MEAN CORPUSCULAR HEMOGLOBIN 23.5 PG (27.0-34.0); MEAN CORPUSCULAR HGB CONC 31.3 % (32.0-36.0); MEAN PLATELET VOLUME 7.4 FL (7.0-11.0); MONO % 16.3 % (0.0-8.0); MONOCYTE # 3.5 TH/MM3 (0-0.9); PLATELET COUNT 763 TH/MM3 (150-450); RED BLOOD COUNT 3.44 MIL/MM3 (4.50-5.90); RED CELL DISTRIBUTION WIDTH 19.9 % (11.6-17.2); WHITE BLOOD COUNT 21.7 TH/MM3 (4.0-11.0)
[2017-08-21 08:00] VITALS: BP 126/75; PULSE 87; RESP 16; TEMP 97.9; O2SAT 99
[2017-08-21 08:39] LABS: BANDS 6 % (0-6); LYMPHOCYTES 3 % (9-44); MONOCYTES 15 % (0-8); NEUTROPHIL # MANUAL DIFF 17.6 TH/MM3 (1.8-7.7); POLYS (SEG NEUTROPHILS) 75 % (16-70); TARGET CELLS 1+ (NORMAL)
[2017-08-21] MEDS: SODIUM CHLORIDE 0.9% FLUSH 10 ML FLUSH IV FLUSH SCH ×2 (09:05→19:43)
[2017-08-21] MEDS: FUROSEMIDE 20 MG/2 ML VIAL IV PUSH SCH (09:06)
--- NOTE | 2017-08-21 11:09 | HHI.PR ---
Subjective Remarks Follow-up sepsis/UTI/bilateral extremity edema 08/19/17-patient seen and examined, currently afebrile and denies any chest pain or shortness of breath. Still complains of swelling lower extremities. Increased urine output. 08/20/17-patient seen and examined, no complaint and stable. WBC worsening 08/21/17-patient seen and examined, some abdominal distension but denies any significant pain.Afebrile. WBC slightly trending down Objective Vitals Vital Signs Date Time Temp Pulse Resp B/P (MAP) Pulse Ox O2 Delivery O2 Flow Rate FiO2 08/21/17 08:00 97.9 87 16 126/75 (92) 99 08/21/17 04:00 96.9 83 19 134/74 (94) 97 08/21/17 00:00 95.6 91 20 136/77 (96) 97 08/20/17 20:00 97.3 91 19 132/67 (88) 97 08/20/17 16:00 98.8 89 18 125/70 (88) 99 08/20/17 12:00 97.2 91 17 125/71 (89) 99 I/O 08/20/17 08/20/17 08/20/17 08/21/17 08/21/17 08/21/17 07:00 15:00 23:00 07:00 15:00 23:00 Intake Total 600 ml 50 ml 1660 ml 550 ml 50 ml Balance 600 ml 50 ml 1660 ml 550 ml 50 ml Intake Oral 600 ml 1560 ml 500 ml IV Total 50 ml 100 ml 50 ml 50 ml # Voids 5 6 5 # Bowel Movements 5 4 5 Result Diagram: 08/21/17 0627 08/20/17 0942 Imaging Last Impressions Chest X-Ray 08/18/178 Signed Impressions: Service Date/Time: August 12:39 - CONCLUSION: 1. Hypoaerated lungs. 2. No evidence of acute air space disease or pneumothorax. 3. Right- sided [id number]. Elliott Hogan MD Abdomen/Pelvis CT 08/18/17 1208 Signed Impressions: Service Date/Time: August 13:52 - CONCLUSION: Widespread metastatic disease catheter in the liver. Partially calcified gallbladder wall with some internal debris likely stones. With the amount of disease around the gallbladder fossa within the liver, gallbladder carcinoma would be within the differential. The pancreas kidneys adrenal glands are unremarkable. Extensive ascites. Lobito Cash MD Lower Extremity Ultrasound 08/18/17 0000 Signed Impressions: Service Date/Time: August 13:25 - CONCLUSION: Normal examination. Lobito Cash MD Objective Remarks GENERAL: NAD SKIN: Warm and dry. HEAD: Normocephalic. EYES: No scleral icterus. No injection or drainage. NECK: Supple, trachea midline. No JVD or lymphadenopathy. CARDIOVASCULAR: Regular rate and rhythm without murmurs, gallops, or rubs. RESPIRATORY: Breath sounds equal bilaterally. No accessory muscle use. GASTROINTESTINAL: Abdomen soft, non-tender, distended. +BS MUSCULOSKELETAL: No cyanosis; +1 edema BLE. BACK: Nontender without obvious deformity. No CVA tenderness. Procedures None A/P Problem List: (1) Bilateral lower extremity edema ICD Code: R60.0 - Localized edema (2) Sepsis ICD Code: A41.9 - Sepsis, unspecified organism Status: Acute (3) Urinary tract infection ICD Code: N39.0 - Urinary tract infection, site not specified Status: Acute (4) Metastatic adenocarcinoma ICD Code: C79.9 - Secondary malignant neoplasm of unspecified site Status: Acute (5) Ascites ICD Code: R18.8 - Other ascites Assessment and Plan 67-year-old man with Sepsis-Resolved Urinary tract infection Leukocytosis- Currently on Zosyn Urine culture for Proteus Mirabilis Urine Legionella and pneumococcal antigens negative Obstructive uropathy Resolved HLIV PSA within normal limits Metastatic adenocarcinoma of unknown primary. Undergoing chemotherapy. Appreciate input from oncologist. Hyponatremia Resolved anasarca. Ascites Bilateral lower extremity edema likely secondary to malnutrition, fluid overload secondary to urinary retention Lasix Q every other day US guided paracentesis ordered for 08/22/17 Transaminitis. Likely secondary to liver metastasis. Bilirubin elevation as well. This appears better than baseline. No signs of biliary infection. Chronic anemia chronic disease H&H and continue to monitor Problem Qualifiers (1) Sepsis: Qualified Codes: A41.9 - Sepsis, unspecified organism (2) Urinary tract infection: Qualified Codes: N30.01 - Acute cystitis with hematuria Antonio Beltran MD Aug 21, 2017 11:09
[2017-08-21 12:00] VITALS: BP 120/77; PULSE 88; RESP 17; TEMP 97.9; O2SAT 100
[2017-08-21 13:20] LABS: TOTAL PROTEIN 6.2 GM/DL (6.4-8.2)
[2017-08-21 16:00] VITALS: BP 129/73; PULSE 89; RESP 16; TEMP 98.3; O2SAT 97
[2017-08-21 20:00] VITALS: BP 132/75; PULSE 89; RESP 17; TEMP 98.7; O2SAT 98
[2017-08-22] VITALS: BP 138/79; PULSE 82; RESP 17; TEMP 98.5; O2SAT 100
[2017-08-22] MEDS: HEPARIN SODIUM - SQ 10,000 UNITS/ML VIAL SQ SCH ×2 (03:25→16:00)
[2017-08-22] MEDS: PIPERACIL-TAZO 3.375 GM PREMIX 50 ML IV SCH (03:35)
[2017-08-22 08:00] VITALS: BP 133/78; PULSE 84; RESP 18; TEMP 97.7; O2SAT 99
[2017-08-22 09:05] LABS: AUTOMATED NEUTROPHIL # 20.5 TH/MM3 (1.8-7.7); BASOPHIL # 0.1 TH/MM3 (0-0.2); BASOPHIL % 0.5 % (0.0-2.0); EOSINOPHIL # 0.2 TH/MM3 (0-0.4); EOSINOPHIL % 0.9 % (0.0-4.0); HEMATOCRIT 29.3 % (39.0-51.0); HEMOGLOBIN 9.1 GM/DL (13.0-17.0); LYMPH % 8.2 % (9.0-44.0); LYMPHOCYTE # 2.2 TH/MM3 (1.0-4.8); MEAN CELL VOLUME 75.5 FL (80.0-100.0); MEAN CORPUSCULAR HEMOGLOBIN 23.5 PG (27.0-34.0); MEAN CORPUSCULAR HGB CONC 31.2 % (32.0-36.0); MEAN PLATELET VOLUME 7.9 FL (7.0-11.0); MONO % 14.3 % (0.0-8.0); MONOCYTE # 3.8 TH/MM3 (0-0.9); NEUT % 76.1 % (16.0-70.0); PLATELET COUNT 929 TH/MM3 (150-450); RED BLOOD COUNT 3.88 MIL/MM3 (4.50-5.90); RED CELL DISTRIBUTION WIDTH 19.6 % (11.6-17.2); WHITE BLOOD COUNT 26.9 TH/MM3 (4.0-11.0)
[2017-08-22 09:14] LABS: INTERNATIONAL NORMALIZED RATIO 1.2 RATIO; PROTHROMBIN TIME - PATIENT 11.8 SEC (9.8-11.6)
[2017-08-22] MEDS: CIPROFLOXACIN 500 MG TAB PO SCH ×2 (09:22→21:05)
[2017-08-22] MEDS: FUROSEMIDE 20 MG/2 ML VIAL IV PUSH SCH (09:22)
[2017-08-22] MEDS: SODIUM CHLORIDE 0.9% FLUSH 10 ML FLUSH IV FLUSH SCH ×2 (09:24→21:05)
[2017-08-22 10:34] LABS: BANDS 9 % (0-6); LYMPHOCYTES 13 % (9-44); MONOCYTES 16 % (0-8); MYELOCYTES 1 % (0-0); NEUTROPHIL # MANUAL DIFF 19.1 TH/MM3 (1.8-7.7); POLYS (SEG NEUTROPHILS) 61 % (16-70)
[2017-08-22 10:35] LABS: TARGET CELLS 1+ (NORMAL)
--- NOTE | 2017-08-22 11:37 | HHI.PR ---
Subjective Remarks Follow-up sepsis/UTI/bilateral extremity edema 08/19/17-patient seen and examined, currently afebrile and denies any chest pain or shortness of breath. Still complains of swelling lower extremities. Increased urine output. 08/20/17-patient seen and examined, no complaint and stable. WBC worsening 08/21/17-patient seen and examined, some abdominal distension but denies any significant pain.Afebrile. WBC slightly trending down 08/22/17-patient seen and examined, +multiple diarrheal episodes; Going for US guided Paracentesis today Objective Vitals Vital Signs Date Time Temp Pulse Resp B/P (MAP) Pulse Ox O2 Delivery O2 Flow Rate FiO2 08/22/17 08:00 97.7 84 18 133/78 (96) 99 08/22/17 00:00 98.5 82 17 138/79 (98) 100 08/21/17 20:00 98.7 89 17 132/75 (94) 98 08/21/17 16:00 98.3 89 16 129/73 (91) 97 08/21/17 12:00 97.9 88 17 120/77 (91) 100 I/O 08/21/17 08/21/17 08/21/17 08/22/17 08/22/17 08/22/17 07:00 15:00 23:00 07:00 15:00 23:00 Intake Total 550 ml 50 ml 1420 ml 290 ml Output Total 725 ml Balance 550 ml 50 ml 695 ml 290 ml Intake Oral 500 ml 1320 ml 240 ml IV Total 50 ml 50 ml 100 ml 50 ml Output Urine Total 725 ml # Voids 5 2 # Bowel Movements 5 5 0 Result Diagram: 08/22/17 0750 08/20/17 0942 Objective Remarks GENERAL: NAD SKIN: Warm and dry. HEAD: Normocephalic. EYES: No scleral icterus. No injection or drainage. NECK: Supple, trachea midline. No JVD or lymphadenopathy. CARDIOVASCULAR: Regular rate and rhythm without murmurs, gallops, or rubs. RESPIRATORY: Breath sounds equal bilaterally. No accessory muscle use. GASTROINTESTINAL: Abdomen soft, non-tender, distended. +BS MUSCULOSKELETAL: No cyanosis; +1 edema BLE. BACK: Nontender without obvious deformity. No CVA tenderness. Procedures None A/P Problem List: (1) Bilateral lower extremity edema ICD Code: R60.0 - Localized edema (2) Sepsis ICD Code: A41.9 - Sepsis, unspecified organism Status: Acute (3) Urinary tract infection ICD Code: N39.0 - Urinary tract infection, site not specified Status: Acute (4) Metastatic adenocarcinoma ICD Code: C79.9 - Secondary malignant neoplasm of unspecified site Status: Acute (5) Ascites ICD Code: R18.8 - Other ascites Assessment and Plan 67-year-old man with Sepsis-Resolved Urinary tract infection Leukocytosis- s/p Zosyn and now on Cipro Urine culture for Proteus Mirabilis Urine Legionella and pneumococcal antigens negative Obstructive uropathy Resolved HLIV PSA within normal limits Metastatic adenocarcinoma of unknown primary. Undergoing chemotherapy. Appreciate input from oncologist. Hyponatremia Resolved anasarca. Ascites Bilateral lower extremity edema likely secondary to malnutrition, fluid overload secondary to urinary retention Lasix Q every other day US guided paracentesis plan for today 08/22/17 Diarrhea Rule out C. difficile diarrhea with C. difficile PCR and treat accordingly Transaminitis. Likely secondary to liver metastasis. Bilirubin elevation as well. This appears better than baseline. No signs of biliary infection. Chronic anemia chronic disease H&H and continue to monitor Problem Qualifiers (1) Sepsis: Qualified Codes: A41.9 - Sepsis, unspecified organism (2) Urinary tract infection: Qualified Codes: N30.01 - Acute cystitis with hematuria Antonio Beltran MD Aug 22, 2017 11:37
[2017-08-22] MEDS ORDERED: LIDOCAINE HCL 1% 20 ML VIAL ONE ×2 (13:17→15:15)
--- NOTE | 2017-08-22 13:25 | RADRPT ---
EXAM DATE/TIME: 08/22/2017 09:03 [place] COMPARISON: No previous studies available for comparison. EXTERNAL COMPARISON: [facility], PET CT Tumor, Jul 04 2017. INDICATIONS : Ascites. MEDICAL HISTORY : Hypertension. Prostate cancer. Chemotherapy. SURGICAL HISTORY : None. ENCOUNTER: Subsequent ACUITY: 1 day PAIN SCORE: 0/10 LOCATION: Right lower quadrant FLUID: Total volume of 3600 cc of clear, yellow fluid was removed. Fluid was sent to lab for ordered studies. Post procedure scanning reveals no hematoma or other complication. TECHNIQUE: 1. Ultrasound guidance for abdominal paracentesis. 2. Paracentesis. The risks, benefits, and alternatives to ultrasound guided paracentesis were explained to the patient in detail including the risk of bleeding and infection. Written and verbal informed consent was obt ained. With the patient on the ultrasound table, ultrasound imaging was used to select the most appropriate approach for paracentesis. Overlying skin was prepped and draped in the usual sterile fashion and wi th a local anesthetic, a dermatotomy was made with an 11 blade scalpel. A 6 [employer] [id number]-Y-yasvpshi ca theter was introduced into the peritoneal cavity and fluid was collected. The patient tolerated the procedure well and left the ultrasound suite in stable condition. CONCLUSION: Uncomplicated ultrasound guided paracentesis. Parveen Doty MD on August 22, 2017 at 13:24 Board Certified Radiologist. This report was verified electronically.
[2017-08-22 13:40] VITALS: BP 128/81; PULSE 90; RESP 18; TEMP 97.3; O2SAT 100
[2017-08-22 14:01] LABS: TOTAL PROTEIN,PERITONEAL FLUID 3.1 GM/DL
[2017-08-22 15:15] LABS: PERITONEAL LYMPHS 18 %; PERITONEAL MESOTHELIAL 31 %; PERITONEAL MONOS 43 %; PERITONEAL POLYS(SEGS) 8 %
[2017-08-22 15:33] LABS: PERITONEAL RBC 1311 /MM3 (0-0)
[2017-08-22 16:00] VITALS: BP 125/69; PULSE 84; RESP 18; TEMP 98.2; O2SAT 100
[2017-08-22 20:00] VITALS: BP 134/73; PULSE 90; RESP 18; TEMP 97.9; O2SAT 98
[2017-08-23] VITALS: BP 120/72; PULSE 96; RESP 18; TEMP 97.9; O2SAT 98
[2017-08-23] MEDS: HEPARIN SODIUM - SQ 10,000 UNITS/ML VIAL SQ SCH ×2 (05:07→15:39)
[2017-08-23 07:27] LABS: AUTOMATED NEUTROPHIL # 18.8 TH/MM3 (1.8-7.7); BASOPHIL # 0.2 TH/MM3 (0-0.2); BASOPHIL % 0.9 % (0.0-2.0); EOSINOPHIL # 0.2 TH/MM3 (0-0.4); EOSINOPHIL % 0.6 % (0.0-4.0); HEMATOCRIT 26.4 % (39.0-51.0); HEMOGLOBIN 8.4 GM/DL (13.0-17.0); LYMPH % 6.7 % (9.0-44.0); LYMPHOCYTE # 1.7 TH/MM3 (1.0-4.8); MEAN CELL VOLUME 74.5 FL (80.0-100.0); MEAN CORPUSCULAR HEMOGLOBIN 23.8 PG (27.0-34.0); MEAN CORPUSCULAR HGB CONC 31.9 % (32.0-36.0); MEAN PLATELET VOLUME 7.6 FL (7.0-11.0); MONO % 16.5 % (0.0-8.0); MONOCYTE # 4.1 TH/MM3 (0-0.9); NEUT % 75.3 % (16.0-70.0); PLATELET COUNT 733 TH/MM3 (150-450); RED BLOOD COUNT 3.54 MIL/MM3 (4.50-5.90); RED CELL DISTRIBUTION WIDTH 19.2 % (11.6-17.2)
[2017-08-23 08:00] VITALS: BP 133/71; PULSE 81; RESP 16; TEMP 98; O2SAT 97
[2017-08-23 08:14] LABS: BANDS 13 % (0-6); LYMPHOCYTES 4 % (9-44); MONOCYTES 22 % (0-8); MYELOCYTES 2 % (0-0); NEUTROPHIL # MANUAL DIFF 18.3 TH/MM3 (1.8-7.7); POLYS (SEG NEUTROPHILS) 58 % (16-70); TARGET CELLS 1+ (NORMAL)
[2017-08-23] MEDS: CIPROFLOXACIN 500 MG TAB PO SCH ×2 (09:42→20:01)
[2017-08-23] MEDS: SODIUM CHLORIDE 0.9% FLUSH 10 ML FLUSH IV FLUSH SCH ×2 (09:42→20:02)
--- NOTE | 2017-08-23 10:34 | HHI.PR ---
Subjective Remarks Follow-up sepsis/UTI/bilateral extremity edema 08/19/17-patient seen and examined, currently afebrile and denies any chest pain or shortness of breath. Still complains of swelling lower extremities. Increased urine output. 08/20/17-patient seen and examined, no complaint and stable. WBC worsening 08/21/17-patient seen and examined, some abdominal distension but denies any significant pain.Afebrile. WBC slightly trending down 08/22/17-patient seen and examined, +multiple diarrheal episodes; Going for US guided Paracentesis today 08/23/17-patient seen and examined, s/p US guided Paracentesis 08/22/17. No abdominal pain, currently afebrile, WBC still elevated Objective Vitals Vital Signs Date Time Temp Pulse Resp B/P (MAP) Pulse Ox O2 Delivery O2 Flow Rate FiO2 08/23/17 08:00 98.0 81 16 133/71 (91) 97 08/23/17 00:00 97.9 96 18 120/72 (88) 98 08/22/17 20:00 97.9 90 18 134/73 (93) 98 08/22/17 16:00 98.2 84 18 125/69 (87) 100 08/22/17 13:40 97.3 90 18 128/81 (97) 100 I/O 08/22/17 08/22/17 08/22/17 08/23/17 08/23/17 08/23/17 07:00 15:00 23:00 07:00 15:00 23:00 Intake Total 290 ml 360 ml 240 ml Output Total 200 ml Balance 290 ml 160 ml 240 ml Intake Oral 240 ml 360 ml 240 ml IV Total 50 ml Output Urine Total 200 ml # Voids 2 2 2 # Bowel Movements 0 Result Diagram: 08/23/17 0656 08/20/17 0942 Imaging Last Impressions Cyst Biopsy Asp-Paracentesis US 08/22/17 0600 Signed Impressions: Service Date/Time: Tuesday, August 22, 2017 09:03 - CONCLUSION: Uncomplicated ultrasound guided paracentesis. Parveen Doty MD Chest X-Ray 08/18/17 1208 Signed Impressions: Service Date/Time: August 12:39 - CONCLUSION: 1. Hypoaerated lungs. 2. No evidence of acute air space disease or pneumothorax. 3. Right- sided [id number]. Elliott Hogan MD Abdomen/Pelvis CT 08/18/17 1208 Signed Impressions: Service Date/Time: August 13:52 - CONCLUSION: Widespread metastatic disease catheter in the liver. Partially calcified gallbladder wall with some internal debris likely stones. With the amount of disease around the gallbladder fossa within the liver, gallbladder carcinoma would be within the differential. The pancreas kidneys adrenal glands are unremarkable. Extensive ascites. Lobito Cash MD Lower Extremity Ultrasound 08/18/17 0000 Signed Impressions: Service Date/Time: August 13:25 - CONCLUSION: Normal examination. Lobito Cash MD Objective Remarks GENERAL: NAD SKIN: Warm and dry. HEAD: Normocephalic. EYES: No scleral icterus. No injection or drainage. NECK: Supple, trachea midline. No JVD or lymphadenopathy. CARDIOVASCULAR: Regular rate and rhythm without murmurs, gallops, or rubs. RESPIRATORY: Breath sounds equal bilaterally. No accessory muscle use. GASTROINTESTINAL: Abdomen soft, non-tender, distended. +BS MUSCULOSKELETAL: No cyanosis; +1 edema BLE. BACK: Nontender without obvious deformity. No CVA tenderness. Procedures None A/P Problem List: (1) Bilateral lower extremity edema ICD Code: R60.0 - Localized edema (2) Sepsis ICD Code: A41.9 - Sepsis, unspecified organism Status: Acute (3) Urinary tract infection ICD Code: N39.0 - Urinary tract infection, site not specified Status: Acute (4) Metastatic adenocarcinoma ICD Code: C79.9 - Secondary malignant neoplasm of unspecified site Status: Acute (5) Ascites ICD Code: R18.8 - Other ascites Assessment and Plan 67-year-old man with Sepsis-Resolved Urinary tract infection Leukocytosis-worsening s/p Zosyn and now on Cipro Urine culture for Proteus Mirabilis Urine Legionella and pneumococcal antigens negative Infectious disease consultation pending Obstructive uropathy Resolved HLIV PSA within normal limits Metastatic adenocarcinoma of unknown primary. Undergoing chemotherapy. Appreciate input from oncologist. Hyponatremia Resolved anasarca. Ascites Bilateral lower extremity edema likely secondary to malnutrition, fluid overload secondary to urinary retention Lasix Q every other day s/p US guided paracentesis 08/22/17 and monitor culture report as well as cytology Diarrhea-Resolved Transaminitis. Likely secondary to liver metastasis. Bilirubin elevation as well. This appears better than baseline. No signs of biliary infection. Chronic anemia chronic disease H&H and continue to monitor Problem Qualifiers (1) Sepsis: Qualified Codes: A41.9 - Sepsis, unspecified organism (2) Urinary tract infection: Qualified Codes: N30.01 - Acute cystitis with hematuria Antonio Beltran MD Aug 23, 2017 10:34
[2017-08-23 12:00] VITALS: BP 127/70; PULSE 88; RESP 18; TEMP 97.8; O2SAT 99
[2017-08-23 16:00] VITALS: BP 129/69; PULSE 85; RESP 18; TEMP 98.3; O2SAT 98
--- NOTE | 2017-08-23 17:21 | HHI.PR ---
Addendum to Inpatient Note Additional Information Pt seen around 3 pm. Full note to follow Aixa Coppola MD Aug 23, 2017 17:21
--- NOTE | 2017-08-23 17:21 | PD.ID.CON ---
History of Present Illness Service ID Consult Requested By Dr Beltran Reason for Consult Leukocytosis Primary Care Physician Unknown Diagnoses: History of Present Illness 67 yo male with metastatic cancer (gallbladder?) presented with leukocytosis, UTI, Proteus mirabilis Started on cipro and immediately developped severe diarrhea that by now improved WBC got even worse in the last few days and now is 25 K + abdominal pain but no cramps No fever C.diff tested negative Blood clx negatve Periotenal fluid clx negative @ 24 hrs Review of Systems Except as stated in HPI: all other systems reviewed are Neg Past Family Social History Allergies: Coded Allergies: No Known Allergies (Unverified , 08/18/17) Past Medical History Stage IV adenocarcinoma of unknown primary, hypertension, chronic kidney disease, enlarged prostate. Past Surgical History History of port placement, biopsy of the liver. Active Ordered Medications Medications where reviewed in EMR Antibiotics Include: cipro Family History Reviewed and is non-contributory to this admission. Social History He is . He has a remote history of smoking cigarettes for 2 years but he quit 30 years ago. He does not drink alcohol. No illicit drug use. Physical Exam Vital Signs Vital Signs Date Time Temp Pulse Resp B/P (MAP) Pulse Ox O2 Delivery O2 Flow Rate FiO2 08/23/17 16:00 98.3 85 18 129/69 (89) 98 08/23/17 12:00 97.8 88 18 127/70 (89) 99 08/23/17 08:00 98.0 81 16 133/71 (91) 97 08/23/17 00:00 97.9 96 18 120/72 (88) 98 08/22/17 20:00 97.9 90 18 134/73 (93) 98 Physical Exam CONSTITUTIONAL/GENERAL: This is a thin ill appearing patient, in no apparent distress. TUBES/LINES/DRAINS: PORT in place w/o e/o infection around SKIN: No jaundice, rashes, or lesions. Skin temperature appropriate. Not diaphoretic. HEAD: Atraumatic. Normocephalic. EYES: Pupils equal and round and reactive. Extraocular motions intact. No scleral icterus. No injection or drainage. Fundi not examined. ENT: Hearing grossly normal. Nose without bleeding or purulent drainage. Throat without visible erythema, exudates, masses, or lesions. NECK: Trachea midline. Supple, nontender. No palpable thyroid enlargement or nodularity. CARDIOVASCULAR: Regular rate and rhythm without murmurs, gallops, or rubs. No JVD. Peripheral pulses symmetric. RESPIRATORY/CHEST: Symmetric, unlabored respirations. Clear to auscultation. Breath sounds equal bilaterally. No wheezes, rales, or rhonchi. GASTROINTESTINAL: Abdomen soft, mildly tender, distended. No hepato-splenomegaly , + large very firm fixed palpable mass RUQ measuring about 15 cm. No guarding. Bowel sounds present. GENITOURINARY: Without palpable bladder distension. NOted cloudy urine in urinal MUSCULOSKELETAL: Extremities without clubbing, cyanosis, or edema. No joint tenderness or effusion noted. No calf tenderness. No mottling or clubbing. LYMPHATICS: No palpable cervical or supraclavicular adenopathy. NEUROLOGICAL: Awake and alert. Motor and sensory grossly within normal limits. Follows commands. Clear speech. Moves all extremities. PSYCHIATRIC: No obvious anxiety/depression. no apparent hallucinations or other psychotic thought process. Laboratory Laboratory Tests Test 08/23/17 06:56 White Blood Count 25.0 Red Blood Count 3.54 Hemoglobin 8.4 Hematocrit 26.4 Mean Corpuscular Volume 74.5 Mean Corpuscular Hemoglobin 23.8 Mean Corpuscular Hemoglobin Concent 31.9 Red Cell Distribution Width 19.2 Platelet Count 733 Mean Platelet Volume 7.6 Neutrophils (%) (Auto) 75.3 Lymphocytes (%) (Auto) 6.7 Monocytes (%) (Auto) 16.5 Eosinophils (%) (Auto) 0.6 Basophils (%) (Auto) 0.9 Neutrophils # (Auto) 18.8 Lymphocytes # (Auto) 1.7 Monocytes # (Auto) 4.1 Eosinophils # (Auto) 0.2 Basophils # (Auto) 0.2 CBC Comment AUTO DIFF Differential Total Cells Counted 100 Neutrophils % (Manual) 58 Band Neutrophils % 13 Lymphocytes % 4 Monocytes % 22 Eosinophils % 1 Neutrophils # (Manual) 18.3 Myelocytes 2 Differential Comment FINAL DIFF MANUAL Platelet Estimate HIGH Platelet Morphology Comment NORMAL Target Cells 1+ Date/Time Source Procedure Growth Status 08/18/17 15:05 Blood Peripheral Aerobic Blood Culture - Final NO GROWTH IN 5 DAYS Complete 08/18/17 15:05 Blood Peripheral Anaerobic Blood Culture - Final NO GROWTH IN 5 DAYS Complete 08/22/17 12:05 Fluid Peritoneal Fluid Gram Stain - Final Resulted 08/22/17 12:05 Fluid Peritoneal Fluid Body Fluid Culture - Preliminary NO GROWTH IN 24 HOURS. Resulted 08/19/17 15:45 Urine Clean Catch Legionella Antigen - Final PRESUMPTIVE NEGATIVE FOR LEGIONELLA P... Complete 08/19/17 15:45 Urine Clean Catch Streptococcus pneumoniae Antigen (M - Final PRESUMPTIVE NEGATIVE FOR STREPTOCOCCU... Complete Result Diagram: 08/23/17 0656 08/20/17 0942 Imaging Last Impressions Cyst Biopsy Asp-Paracentesis US 08/22/17 0600 Signed Impressions: Service Date/Time: Tuesday, August 22, 2017 09:03 - CONCLUSION: Uncomplicated ultrasound guided paracentesis. Parveen Doty MD Chest X-Ray 08/18/17 1208 Signed Impressions: Service Date/Time: August 12:39 - CONCLUSION: 1. Hypoaerated lungs. 2. No evidence of acute air space disease or pneumothorax. 3. Right- sided [id number]. Elliott Hogan MD Abdomen/Pelvis CT 08/18/17 1208 Signed Impressions: Service Date/Time: August 13:52 - CONCLUSION: Widespread metastatic disease catheter in the liver. Partially calcified gallbladder wall with some internal debris likely stones. With the amount of disease around the gallbladder fossa within the liver, gallbladder carcinoma would be within the differential. The pancreas kidneys adrenal glands are unremarkable. Extensive ascites. Lobito Cash MD Lower Extremity Ultrasound 08/18/17 0000 Signed Impressions: Service Date/Time: August 13:25 - CONCLUSION: Normal examination. Lobito Cash MD Assessment and Plan Assessment and Plan Adenocarcinoma of unknown primary Leukocytosis ? UTI vs 2/2 cancer ' - most likley leukocytosais/ leukemod reaciton is related to large and maybe partially necrotic tumor UTI, Proteus on tx Abx associaed diarrhea - C.diff negative cont current abx x 7 days total MOnitor WBC Aixa Coppola MD Aug 23, 2017 17:20
[2017-08-23 20:00] VITALS: BP 122/69; PULSE 90; RESP 17; TEMP 99.2; O2SAT 99
[2017-08-24] VITALS: BP 117/64; PULSE 82; RESP 17; TEMP 98.7; O2SAT 98
[2017-08-24] MEDS: HEPARIN SODIUM - SQ 10,000 UNITS/ML VIAL SQ SCH (04:08)
[2017-08-24 08:00] VITALS: BP 142/71; PULSE 85; RESP 17; TEMP 98.5; O2SAT 96
[2017-08-24 08:32] LABS: AUTOMATED NEUTROPHIL # 23.3 TH/MM3 (1.8-7.7); BASOPHIL # 0.1 TH/MM3 (0-0.2); BASOPHIL % 0.5 % (0.0-2.0); EOSINOPHIL # 0.1 TH/MM3 (0-0.4); EOSINOPHIL % 0.4 % (0.0-4.0); HEMATOCRIT 28.7 % (39.0-51.0); LYMPH % 7.1 % (9.0-44.0); LYMPHOCYTE # 2.2 TH/MM3 (1.0-4.8); MEAN CELL VOLUME 75.9 FL (80.0-100.0); MEAN CORPUSCULAR HEMOGLOBIN 23.9 PG (27.0-34.0); MEAN CORPUSCULAR HGB CONC 31.5 % (32.0-36.0); MONO % 15.2 % (0.0-8.0); MONOCYTE # 4.6 TH/MM3 (0-0.9); NEUT % 76.8 % (16.0-70.0); PLATELET COUNT 769 TH/MM3 (150-450); RED BLOOD COUNT 3.79 MIL/MM3 (4.50-5.90); RED CELL DISTRIBUTION WIDTH 20.1 % (11.6-17.2); WHITE BLOOD COUNT 30.4 TH/MM3 (4.0-11.0)
[2017-08-24] MEDS: CIPROFLOXACIN 500 MG TAB PO SCH (08:42)
[2017-08-24] MEDS: SODIUM CHLORIDE 0.9% FLUSH 10 ML FLUSH IV FLUSH SCH (08:43)
[2017-08-24] MEDS: FUROSEMIDE 20 MG/2 ML VIAL IV PUSH SCH (08:43)
[2017-08-24 09:34] LABS: BANDS 6 % (0-6); LYMPHOCYTES 2 % (9-44); MONOCYTES 11 % (0-8); MYELOCYTES 1 % (0-0); NEUTROPHIL # MANUAL DIFF 26.1 TH/MM3 (1.8-7.7); POLYS (SEG NEUTROPHILS) 79 % (16-70)
[2017-08-24 09:35] LABS: TARGET CELLS 1+ (NORMAL); TOXIC GRANULATION 1+ (NORMAL)
[2017-08-24] MEDS ORDERED: FURO1TAB62 PO (10:00)
[2017-08-24] MEDS ORDERED: POTA-163 PO (10:00)
[2017-08-24] MEDS ORDERED: CIPR-9 PO (10:00)
--- NOTE | 2017-08-24 10:03 | HHI.PR ---
Subjective Remarks Follow-up sepsis/UTI/bilateral extremity edema 08/19/17-patient seen and examined, currently afebrile and denies any chest pain or shortness of breath. Still complains of swelling lower extremities. Increased urine output. 08/20/17-patient seen and examined, no complaint and stable. WBC worsening 08/21/17-patient seen and examined, some abdominal distension but denies any significant pain.Afebrile. WBC slightly trending down 08/22/17-patient seen and examined, +multiple diarrheal episodes; Going for US guided Paracentesis today 08/23/17-patient seen and examined, s/p US guided Paracentesis 08/22/17. No abdominal pain, currently afebrile, WBC still elevated 08/24/17-patient seen and examined; doing well and WBC trending slightly. patient is doing well. Appreciate input from ID Objective Vitals Vital Signs Date Time Temp Pulse Resp B/P (MAP) Pulse Ox O2 Delivery O2 Flow Rate FiO2 08/24/17 08:00 98.5 85 17 142/71 (94) 96 08/24/17 00:00 98.7 82 17 117/64 (81) 98 08/23/17 20:00 99.2 90 17 122/69 (86) 99 08/23/17 16:00 98.3 85 18 129/69 (89) 98 08/23/17 12:00 97.8 88 18 127/70 (89) 99 I/O 08/23/17 08/23/17 08/23/17 08/24/17 08/24/17 08/24/17 07:00 15:00 23:00 07:00 15:00 23:00 Intake Total 240 ml 480 ml 240 ml Output Total 800 ml Balance 240 ml -320 ml 240 ml Intake Oral 240 ml 480 ml 240 ml Output Urine Total 800 ml # Voids 2 2 # Bowel Movements 0 Result Diagram: 08/24/17 0741 08/20/17 0942 Imaging Last Impressions Cyst Biopsy Asp-Paracentesis US 08/22/17 0600 Signed Impressions: Service Date/Time: Tuesday, August 22, 2017 09:03 - CONCLUSION: Uncomplicated ultrasound guided paracentesis. Parveen Doty MD Chest X-Ray 08/18/17 1208 Signed Impressions: Service Date/Time: August 12:39 - CONCLUSION: 1. Hypoaerated lungs. 2. No evidence of acute air space disease or pneumothorax. 3. Right- sided [id number]. Elliott Hogan MD Abdomen/Pelvis CT 08/18/17 1208 Signed Impressions: Service Date/Time: August 13:52 - CONCLUSION: Widespread metastatic disease catheter in the liver. Partially calcified gallbladder wall with some internal debris likely stones. With the amount of disease around the gallbladder fossa within the liver, gallbladder carcinoma would be within the differential. The pancreas kidneys adrenal glands are unremarkable. Extensive ascites. Lobito Cash MD Lower Extremity Ultrasound 08/18/17 0000 Signed Impressions: Service Date/Time: August 13:25 - CONCLUSION: Normal examination. Lobito Cash MD Objective Remarks GENERAL: NAD SKIN: Warm and dry. HEAD: Normocephalic. EYES: No scleral icterus. No injection or drainage. NECK: Supple, trachea midline. No JVD or lymphadenopathy. CARDIOVASCULAR: Regular rate and rhythm without murmurs, gallops, or rubs. RESPIRATORY: Breath sounds equal bilaterally. No accessory muscle use. GASTROINTESTINAL: Abdomen soft, non-tender, distended. +BS MUSCULOSKELETAL: No cyanosis; +1 edema BLE. BACK: Nontender without obvious deformity. No CVA tenderness. Procedures None A/P Problem List: (1) Bilateral lower extremity edema ICD Code: R60.0 - Localized edema (2) Sepsis ICD Code: A41.9 - Sepsis, unspecified organism Status: Acute (3) Urinary tract infection ICD Code: N39.0 - Urinary tract infection, site not specified Status: Acute (4) Metastatic adenocarcinoma ICD Code: C79.9 - Secondary malignant neoplasm of unspecified site Status: Acute (5) Ascites ICD Code: R18.8 - Other ascites Assessment and Plan 67-year-old man with Sepsis-Resolved Urinary tract infection Leukocytosis- s/p Zosyn and now on Cipro x 7 days today per ID Urine culture for Proteus Mirabilis Urine Legionella and pneumococcal antigens negative Infectious disease input appreciated Obstructive uropathy Resolved HLIV PSA within normal limits Metastatic adenocarcinoma of unknown primary. Undergoing chemotherapy. Appreciate input from oncologist. Hyponatremia Resolved anasarca. Ascites Bilateral lower extremity edema likely secondary to malnutrition, fluid overload secondary to urinary retention Lasix Q every other day s/p US guided paracentesis 08/22/17 and monitor culture report as well as cytology Diarrhea-Resolved Transaminitis. Likely secondary to liver metastasis. Bilirubin elevation as well. This appears better than baseline. No signs of biliary infection. Chronic anemia chronic disease H&H and continue to monitor Problem Qualifiers (1) Sepsis: Qualified Codes: A41.9 - Sepsis, unspecified organism (2) Urinary tract infection: Qualified Codes: N30.01 - Acute cystitis with hematuria Antonio Beltran MD Aug 24, 2017 10:03
--- NOTE | 2017-08-24 10:04 | HHI.DS ---
Discharge Summary Admission Date Aug 18, 2017 at 15:24 Discharge Date: Aug 24, 2017 Admitting Diagnosis UTI, sepsis, metastatic adenocarcinoma (1) Bilateral lower extremity edema ICD Code: R60.0 - Localized edema (2) Sepsis ICD Code: A41.9 - Sepsis, unspecified organism Status: Acute (3) Urinary tract infection ICD Code: N39.0 - Urinary tract infection, site not specified Status: Acute (4) Metastatic adenocarcinoma ICD Code: C79.9 - Secondary malignant neoplasm of unspecified site Status: Acute (5) Ascites ICD Code: R18.8 - Other ascites Procedures None Brief History - From Admission 67-year-old male with a history of 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 Most recent chemotherapy with Gemzar on August 09. He also reports 3-4 days of worsening abdominal distention, however without increase in abdominal pain. He also reports 2 days of worsening bilateral lower extremity edema. He denies any fevers or chills. Denies any nausea or vomiting. Does report being constipated , however says this is resolved. CBC/BMP: 08/24/17 0741 08/20/17 0942 Significant Findings Laboratory Tests Test 08/21/17 12:40 08/22/17 07:50 08/22/17 12:05 08/23/17 06:56 Lactate Dehydrogenase 609 U/L (87-241) Total Protein 6.2 GM/DL (6.4-8.2) White Blood Count 26.9 TH/MM3 (4.0-11.0) 25.0 TH/MM3 (4.0-11.0) Red Blood Count 3.88 MIL/MM3 (4.50-5.90) 3.54 MIL/MM3 (4.50-5.90) Hemoglobin 9.1 GM/DL (13.0-17.0) 8.4 GM/DL (13.0-17.0) Hematocrit 29.3 % (39.0-51.0) 26.4 % (39.0-51.0) Mean Corpuscular Volume 75.5 FL (80.0-100.0) 74.5 FL (80.0-100.0) Mean Corpuscular Hemoglobin 23.5 PG (27.0-34.0) 23.8 PG (27.0-34.0) Mean Corpuscular Hemoglobin Concent 31.2 % (32.0-36.0) 31.9 % (32.0-36.0) Red Cell Distribution Width 19.6 % (11.6-17.2) 19.2 % (11.6-17.2) Platelet Count 929 TH/MM3 (150-450) 733 TH/MM3 (150-450) Neutrophils (%) (Auto) 76.1 % (16.0-70.0) 75.3 % (16.0-70.0) Lymphocytes (%) (Auto) 8.2 % (9.0-44.0) 6.7 % (9.0-44.0) Monocytes (%) (Auto) 14.3 % (0.0-8.0) 16.5 % (0.0-8.0) Neutrophils # (Auto) 20.5 TH/MM3 (1.8-7.7) 18.8 TH/MM3 (1.8-7.7) Monocytes # (Auto) 3.8 TH/MM3 (0-0.9) 4.1 TH/MM3 (0-0.9) Band Neutrophils % 9 % (0-6) 13 % (0-6) Monocytes % 16 % (0-8) 22 % (0-8) Neutrophils # (Manual) 19.1 TH/MM3 (1.8-7.7) 18.3 TH/MM3 (1.8-7.7) Myelocytes 1 % (0-0) 2 % (0-0) Platelet Estimate HIGH (NORMAL) HIGH (NORMAL) Target Cells 1+ (NORMAL) 1+ (NORMAL) Prothrombin Time 11.8 SEC (9.8-11.6) Peritoneal Fluid WBC 195 /MM3 (0-10) Peritoneal Fluid RBC 1311 /MM3 (0-0) Lymphocytes % 4 % (9-44) Test 08/23/17 20:50 08/24/17 07:41 White Blood Count 30.4 TH/MM3 (4.0-11.0) Red Blood Count 3.79 MIL/MM3 (4.50-5.90) Hemoglobin 9.0 GM/DL (13.0-17.0) Hematocrit 28.7 % (39.0-51.0) Mean Corpuscular Volume 75.9 FL (80.0-100.0) Mean Corpuscular Hemoglobin 23.9 PG (27.0-34.0) Mean Corpuscular Hemoglobin Concent 31.5 % (32.0-36.0) Red Cell Distribution Width 20.1 % (11.6-17.2) Platelet Count 769 TH/MM3 (150-450) Neutrophils (%) (Auto) 76.8 % (16.0-70.0) Lymphocytes (%) (Auto) 7.1 % (9.0-44.0) Monocytes (%) (Auto) 15.2 % (0.0-8.0) Neutrophils # (Auto) 23.3 TH/MM3 (1.8-7.7) Monocytes # (Auto) 4.6 TH/MM3 (0-0.9) Neutrophils % (Manual) 79 % (16-70) Lymphocytes % 2 % (9-44) Monocytes % 11 % (0-8) Neutrophils # (Manual) 26.1 TH/MM3 (1.8-7.7) Myelocytes 1 % (0-0) Toxic Granulation 1+ (NORMAL) Platelet Estimate HIGH (NORMAL) Target Cells 1+ (NORMAL) Imaging Last Impressions Cyst Biopsy Asp-Paracentesis US 08/22/17 0600 Signed Impressions: Service Date/Time: Tuesday, August 22, 2017 09:03 - CONCLUSION: Uncomplicated ultrasound guided paracentesis. Parveen Doty MD Chest X-Ray 08/18/17 1208 Signed Impressions: Service Date/Time: August 12:39 - CONCLUSION: 1. Hypoaerated lungs. 2. No evidence of acute air space disease or pneumothorax. 3. Right- sided Tborok-m-Haqf. Elliott Hogan MD Abdomen/Pelvis CT 08/18/17 1208 Signed Impressions: Service Date/Time: August 13:52 - CONCLUSION: Widespread metastatic disease catheter in the liver. Partially calcified gallbladder wall with some internal debris likely stones. With the amount of disease around the gallbladder fossa within the liver, gallbladder carcinoma would be within the differential. The pancreas kidneys adrenal glands are unremarkable. Extensive ascites. Lobito Cash MD Lower Extremity Ultrasound 08/18/17 0000 Signed Impressions: Service Date/Time: August 13:25 - CONCLUSION: Normal examination. Lobito Cash MD PE at Discharge GENERAL: NAD SKIN: Warm and dry. HEAD: Normocephalic. EYES: No scleral icterus. No injection or drainage. NECK: Supple, trachea midline. No JVD or lymphadenopathy. CARDIOVASCULAR: Regular rate and rhythm without murmurs, gallops, or rubs. RESPIRATORY: Breath sounds equal bilaterally. No accessory muscle use. GASTROINTESTINAL: Abdomen soft, non-tender, distended. +BS MUSCULOSKELETAL: No cyanosis; +1 edema BLE. BACK: Nontender without obvious deformity. No CVA tenderness. Hospital Course while in the hospital, patient was treated for: Sepsis-Resolved Urinary tract infection Leukocytosis- s/p Zosyn and patient to complete Cipro x 7 days today per ID Urine culture for Proteus Mirabilis Urine Legionella and pneumococcal antigens negative Infectious disease input appreciated Obstructive uropathy Resolved HLIV PSA within normal limits Metastatic adenocarcinoma of unknown primary. Undergoing chemotherapy. Appreciate input from oncologist. Hyponatremia Resolved anasarca. Ascites Bilateral lower extremity edema likely secondary to malnutrition, fluid overload secondary to urinary retention Lasix Q every other day s/p US guided paracentesis 08/22/17 and monitor culture report as well as cytology Diarrhea-Resolved Transaminitis. Likely secondary to liver metastasis. Bilirubin elevation as well. This appears better than baseline. No signs of biliary infection. Chronic anemia chronic disease H&H and continue to monitor Pt Condition on Discharge: Good Discharge Disposition: Discharge Home Discharge Time: <= 30 minutes Discharge Instructions DIET: Follow Instructions for: As Tolerated, No Restrictions Activities you can perform: Regular-No Restrictions Follow up Referrals: Oncology PCP Follow-up - 1 Week New Medications: Furosemide (Lasix) 20 Mg Tab 20 MG PO EVERY OTHER DAY for Prevent Heart Failure, #30 TAB 0 Refills Potassium Chloride ER (Potassium Chloride ER) 20 Meq Tab 20 MEQ PO EVERY OTHER DAY for Electrolyte Replacement, #30 TAB 0 Refills Ciprofloxacin (Cipro) 500 Mg Tab 500 MG PO Q12HR for Infection, #14 TAB Continued Medications: Hydrocodone-Acetaminophen (Rincon) 5 Mg-325 Mg Tab 1 TAB PO Q4H PRN for PAIN, TAB 0 Refills Antonio Beltran MD Aug 24, 2017 10:04
[2017-08-24 12:46] LABS: AMYLASE BODY FLUID 29 U/L; AMYLASE BODY FLUID TYPE PERITONEAL
== END 2017-08-24 12:42 | disposition home or self-care (01) | DRG 872 ==
LOC: NEPC 10:31 → NEDA 15:24 → N07A 17:17
PROVIDERS: ADMIT Hospitalist; ATTEND Hospitalist
PROC: 0W9G3ZZ Drainage of Peritoneal Cavity, Percutaneous Approach (ICD-10-PCS; principal; 2017-08-22)
DX: A41.9 Sepsis, unspecified organism (principal); E46 Unspecified protein-calorie malnutrition; C78.00 Secondary malignant neoplasm of unspecified lung; C78.7 Secondary malignant neoplasm of liver and intrahepatic bile duct; R18.8 Other ascites; E87.1 Hypo-osmolality and hyponatremia; N39.0 Urinary tract infection, site not specified; B96.4 Proteus (mirabilis) (morganii) as the cause of diseases classified elsewhere; N13.9 Obstructive and reflux uropathy, unspecified; R00.0 Tachycardia, unspecified; R60.0 Localized edema; E87.70 Fluid overload, unspecified; Z68.24 Body mass index [BMI] 24.0-24.9, adult; R74.0 Nonspecific elevation of levels of transaminase and lactic acid dehydrogenase [LDH]; D63.8 Anemia in other chronic diseases classified elsewhere; R19.7 Diarrhea, unspecified; I12.9 Hypertensive chronic kidney disease with stage 1 through stage 4 chronic kidney disease, or unspecified chronic kidney disease; N18.9 Chronic kidney disease, unspecified; N40.0 Benign prostatic hyperplasia without lower urinary tract symptoms; Z92.21 Personal history of antineoplastic chemotherapy; D47.3 Essential (hemorrhagic) thrombocythemia; Z87.891 Personal history of nicotine dependence
CPT/HCPCS: 49083; 71045; 74177; 80053; 81001; 82042; 82150; 82945; 83605; 83615; 83880; 84153; 84155; 84157; 85007; 85027; 85610; 85730; 86850; 86900; 86901; 87040; 87070; 87077; 87086; 87186; 87205; 87449; 87493; 88112; 89051; 93970; C1729; J0696; J1644; J1940; J2543; J7030; Q9967

== ENCOUNTER 2017-09-14 07:40 | Day surgery (SDC) | payer MEDICARE ==
[~2017-09-14 07:40] MED LIST changes: -AMLO10TA2 PO; +CIPR-9 PO; +FURO1TAB62 PO; -HYDR25TA5 PO; +POTA-163 PO
[2017-09-14] MEDS ORDERED: LIDOCAINE HCL 1% PF 30 ML VIAL ONE (09:58)
--- NOTE | 2017-09-14 10:49 | PD.RAD ---
Post US Procedure Prog Note Pre Procedure Diagnosis: (1) Ascites Post Procedure Diagnosis: (1) Ascites Procedure Date: Sep 14, 2017 Supervising Radiologist: Elliott Hogan Proceduralist/Assist: Chelita Maharaj RDMS Anesthesia: Local Plan of Activity Patient to Unit: ROPU Patient Condition: Fair See PACS Report for procedural detail/treatment Drainage Procedure Procedure 1 Imaging Guidance: Ultrasound Side: Right Procedure Type: Paracentesis Procedure: Removal Swedish: 6 Drainage: Suction Fluid Removal (CCs): 6900 Fluid Description: Cloudy, Yellow Elliott Hogan MD Sep 14, 2017 10:49
[2017-09-14 11:05] VITALS: BP 143/90; PULSE 107; RESP 18; O2SAT 93
[2017-09-14] MEDS ORDERED: ALBUMIN HUMAN 25% 25GM-W/12.5GM FOR 37.5GM IV ONE (11:15)
[2017-09-14] MEDS ORDERED: ALBUMIN HUMAN 25% 12.5GM-W/25GM FOR 37.5GM IV ONE (11:15)
--- NOTE | 2017-09-14 11:50 | RADRPT ---
EXAM DATE/TIME: 09/14/2017 08:17 [facility] COMPARISON: US GUIDED ABD PARACENTESIS, August 22, 2017, 9:03. INDICATIONS : Ascites. MEDICAL HISTORY : HTN. Prostate CA. Radiation. Chemotherapy. SURGICAL HISTORY : None. ENCOUNTER: Subsequent ACUITY: 1 month PAIN SCORE: 3/10 LOCATION: Right lower quadrant FLUID: Total volume of 6900 cc of clear, yellow fluid was removed. Fluid was sent to lab for ordered studies. Post procedure scanning reveals no hematoma or other complication. TECHNIQUE: 1. Ultrasound guidance for abdominal paracentesis. 2. Paracentesis. The risks, benefits, and alternatives to ultrasound guided paracentesis were explained to the patient in detail including the risk of bleeding and infection. Written and verbal informed consent was obt ained. With the patient on the ultrasound table, ultrasound imaging was used to select the most appropriate approach for paracentesis. Overlying skin was prepped and draped in the usual sterile fashion and wi th a local anesthetic, a dermatotomy was made with an 11 blade scalpel. A 6 Lao Kpd-Y-nrfnzzwm ca theter was introduced into the peritoneal cavity and fluid was collected. The patient tolerated the procedure well and left the ultrasound suite in stable condition. CONCLUSION: Uncomplicated ultrasound guided paracentesis. Elliott Hogan MD on September 14, 2017 at 11:48 Board Certified Radiologist. This report was verified electronically.
[2017-09-14 12:05] VITALS: BP 138/88; PULSE 96; RESP 18; O2SAT 96
== END 2017-09-14 12:20 | disposition home or self-care (01) ==
LOC: HRAD 07:40 → HRIP 07:41 → HRAD 12:20
PROVIDERS: ATTEND Internal Medicine
DX: R18.8 Other ascites (principal); I10 Essential (primary) hypertension; C61 Malignant neoplasm of prostate
CPT/HCPCS: 49083; 88112; 88305; 96365; C1729; P9047

== ENCOUNTER 2017-10-10 07:23 | Day surgery (SDC) | payer MEDICARE ==
[2017-10-10 07:56] VITALS: BP 142/94; PULSE 98; RESP 16; TEMP 99.4; O2SAT 99
[2017-10-10] MEDS ORDERED: LIDOCAINE HCL 1% PF 30 ML VIAL ONE (08:14)
[2017-10-10] MEDS ORDERED: ALBUMIN 25% INJ 0 ML IV ONE (09:00)
[2017-10-10 09:25] VITALS: BP 144/81; PULSE 86; RESP 18; TEMP 98.3; O2SAT 100
--- NOTE | 2017-10-10 09:38 | RADRPT ---
EXAM DATE/TIME: 10/10/2017 07:34 [facility] COMPARISON: EXTERNAL COMPARISON: US GUIDED ABD PARACENTESIS, September 14, 2017, 8:17. [facility], US ABDOMEN COMPLETE, Sep 20, [facility], PET/CT TUMOR, July 04, 2017. INDICATIONS : Ascites. MEDICAL HISTORY : HTN. Prostate CA. Ascites. Radiation. Chemotherapy. SURGICAL HISTORY : Paracentesis. ENCOUNTER: [facility] ACUITY: 3 days PAIN SCORE: 0/10 LOCATION: Right lower quadrant FLUID: Total volume of 8400 cc of clear, yellow fluid was removed. Fluid was discarded. Paracentesis was therapeutic only. Post procedure scanning reveals no hematoma or other complication. TECHNIQUE: 1. Ultrasound guidance for abdominal paracentesis. 2. Paracentesis. The risks, benefits, and alternatives to ultrasound guided paracentesis were explained to the patient in detail including the risk of bleeding and infection. Written and verbal informed consent was obt ained. With the patient on the ultrasound table, ultrasound imaging was used to select the most appropriate approach for paracentesis. Overlying skin was prepped and draped in the usual sterile fashion and wi th a local anesthetic, a dermatotomy was made with an 11 blade scalpel. A 6 Khmer Ioa-X-doupybig ca theter was introduced into the peritoneal cavity and fluid was collected. The patient tolerated the procedure well and left the ultrasound suite in stable condition. CONCLUSION: Uncomplicated ultrasound guided paracentesis. Bucky Espinal MD on October 10, 2017 at 9:34 Board Certified Radiologist. This report was verified electronically.
[2017-10-10 09:40] VITALS: BP 137/85; PULSE 85; RESP 18; O2SAT 98
[2017-10-10] MEDS ORDERED: ALBUMIN HUMAN 25% 50 GM IV ONE (09:45)
== END 2017-10-10 10:38 | disposition home or self-care (01) ==
LOC: HRAD 07:23 → HRIP 07:24 → HRAD 10:38
PROVIDERS: ATTEND Internal Medicine
DX: R18.8 Other ascites (principal)
CPT/HCPCS: 49083; C1729; P9047

== ENCOUNTER 2017-11-01 09:48 | Day surgery (SDC) | payer MEDICARE ==
[2017-11-01 10:52] VITALS: BP 143/92; PULSE 102; RESP 18; TEMP 98.6; O2SAT 98
[2017-11-01 12:30] VITALS: BP 130/82; PULSE 89; RESP 18; TEMP 97.8; O2SAT 97
--- NOTE | 2017-11-01 12:33 | RADRPT ---
EXAM DATE/TIME: 11/01/2017 10:43 [facility] COMPARISON: EXTERNAL COMPARISON: US GUIDED ABD PARACENTESIS, October 10, 2017, 7:34. [facility], US ABDOMEN COMPLETE, Sep 20, [facility], PET/CT TUMOR, July 04, 2017. INDICATIONS : Ascites. MEDICAL HISTORY : HTN. Prostate CA. Ascites. Radiation. Chemotherapy. SURGICAL HISTORY : Paracentesis. ENCOUNTER: Subsequent ACUITY: 3 weeks PAIN SCORE: 0/10 LOCATION: Right lower quadrant FLUID: Total volume of 11,200 cc of clear, yellow fluid was removed. Fluid was discarded. Paracentesis was therapeutic only. Post procedure scanning reveals no hematoma or other complication. TECHNIQUE: 1. Ultrasound guidance for abdominal paracentesis. 2. Paracentesis. The risks, benefits, and alternatives to ultrasound guided paracentesis were explained to the patient in detail including the risk of bleeding and infection. Written and verbal informed consent was obt ained. With the patient on the ultrasound table, ultrasound imaging was used to select the most appropriate approach for paracentesis. Overlying skin was prepped and draped in the usual sterile fashion and wi th a local anesthetic, a dermatotomy was made with an 11 blade scalpel. A 6 Czech Bci-N-fhzkobdo ca theter was introduced into the peritoneal cavity and fluid was collected. The patient tolerated the procedure well and left the ultrasound suite in stable condition. CONCLUSION: Uncomplicated ultrasound guided paracentesis. Parveen Doty MD on November 01, 2017 at 12:29 Board Certified Radiologist. This report was verified electronically.
[2017-11-01 12:50] VITALS: BP 126/89; PULSE 85; RESP 18; O2SAT 97
[2017-11-01] MEDS ORDERED: ALBUMIN HUMAN 25% 12.5GM-W/50GM FOR 62.5GM IV ONE (13:30)
[2017-11-01] MEDS ORDERED: ALBUMIN HUMAN 25% 50GM-W/12.5GM FOR 62.5GM IV ONE (13:30)
[2017-11-01] MEDS ORDERED: LIDOCAINE HCL 1% 20 ML VIAL ONE (14:18)
--- NOTE | 2017-11-01 14:25 | RADRPT ---
EXAM DATE/TIME: 11/01/2017 13:54 [facility] COMPARISON: No previous studies available for comparison. INDICATIONS : Patient in need of peripheral intravenous access for medication administration. MEDICAL HISTORY : HTN Prostate CA SURGICAL HISTORY : Chemotherapy Radiation treatment Paracentesis ENCOUNTER: Initial ACUITY: 3 weeks PAIN SCORE: 0/10 LOCATION: N/A IMAGE SERIES: 1 ACCESS: Right basilic vein DEVICE(S): 1.) 3/4 Zambian Dilator PROCEDURE : 1. Ultrasound guided venous access. The risks, benefits and alternatives to the procedure were explained and verbal and written consent w as obtained. The site was prepped in sterile fashion. Full sterile technique was used, including ca p, mask, sterile gloves and gown and a large sterile sheet. Hand hygiene and 2% chlorhexidine and/or betadine/alcohol prep was utilized per protocol for cutaneous antisepsis. Sterile gel and sterile p robe cover were utilized for ultrasound guidance. The skin and subcutaneous tissues were infiltrate d with local anesthetic solution. With ultrasound guidance the prescribed vein was punctured for venous access. A 4 Zambian dilator was placed and was flushed and locked with heparin. The patient tolerated procedure well and there were n o complications. CONCLUSION: Uncomplicated ultrasound guided venous access. Thomas Watson MD on November 01, 2017 at 14:22 Board Certified Radiologist. This report was verified electronically.
== END 2017-11-01 15:30 | disposition home or self-care (01) ==
LOC: HRAD 09:48 → HRIP 09:50 → HRAD 15:30
PROVIDERS: ATTEND Internal Medicine
DX: R18.8 Other ascites (principal); C61 Malignant neoplasm of prostate; I10 Essential (primary) hypertension
CPT/HCPCS: 36410; 49083; 76937; 96365; C1729; P9047

== ENCOUNTER 2017-11-28 09:42 | Day surgery (SDC) | payer MEDICARE ==
[2017-11-28 10:24] VITALS: BP 144/103; PULSE 110; RESP 16; TEMP 100.4; O2SAT 98
[2017-11-28 10:35] VITALS: BP 144/98
[2017-11-28] MEDS ORDERED: LIDOCAINE HCL 1% PF 30 ML VIAL ONE (11:33)
[2017-11-28 12:10] VITALS: BP 125/88; PULSE 107; RESP 16; TEMP 98.3; O2SAT 98
[2017-11-28] MEDS ORDERED: ALBUMIN 25% INJ 300 ML IV ONE (13:00)
[2017-11-28] MEDS ORDERED: ALBUMIN 25% INJ 100 ML IV ONE (13:00)
[2017-11-28 13:15] VITALS: BP 124/68; PULSE 90; RESP 18; O2SAT 98
--- NOTE | 2017-11-29 08:27 | RADRPT ---
EXAM DATE: 11/28/2017 12:29 PM EDT AGE/SEX: 67 years / Male INDICATIONS: Ascites. CLINICAL DATA: This is the patient's initial encounter. Patient reports that signs and symptoms have been present for 3 weeks and indicates a pain score of 5/10. MEDICAL/SURGICAL HISTORY: . Hypertension. Renal cancer. Chemotherapy. . Nephrectomy. Hysterect sarthak. Cholecystectomy. [place] [facility] [place]/01/2017. . FLUID: Total volume of 14,100 cc of clear, green fluid was removed. Fluid was discarded. Paracentesis was th erapeutic only. . . TECHNIQUE: Ultrasound guidance for abdominal paracentesis. Paracentesis. The risks, benefits, and alternatives to ultrasound guided paracentesis were explained to the patient in detail including the risk of bleeding and infection. Written and verbal informed consent was obt ained. With the patient on the ultrasound table, ultrasound imaging was used to select the most appropriate approach for paracentesis. Overlying skin was prepped and draped in the usual sterile fashion and wi th a local anesthetic, a dermatotomy was made with an 11 blade scalpel. A 6 Armenian Dsl-Z-fhxlpend ca theter was introduced into the peritoneal cavity and fluid was collected. Post procedure scanning reveals no hematoma or other complication. The patient tolerated the procedu re well and left the ultrasound suite in stable condition. FINDINGS: Successful ultrasound-guided paracentesis as described above. CONCLUSION: 1. Successful ultrasound-guided paracentesis. Electronically signed by: Bucky Espinal MD 11/29/2017 8:25 AM EDT
== END 2017-11-28 13:20 | disposition home or self-care (01) ==
LOC: HRAD 09:42 → HRIP 09:42 → HRAD 13:20
PROVIDERS: ATTEND Internal Medicine
DX: R18.8 Other ascites (principal); I10 Essential (primary) hypertension; Z85.528 Personal history of other malignant neoplasm of kidney; Z90.5 Acquired absence of kidney; Z90.49 Acquired absence of other specified parts of digestive tract
CPT/HCPCS: 49083; C1729; P9047

== ENCOUNTER 2017-12-13 13:58 | Day surgery (SDC) | payer MEDICARE ==
[2017-12-13 17:10] VITALS: BP 118/78; PULSE 88; RESP 18; TEMP 97.5; O2SAT 91
[2017-12-13] MEDS ORDERED: LIDOCAINE HCL 1% PF 30 ML VIAL ONE (17:24)
[2017-12-13 17:25] VITALS: BP 125/79; PULSE 89; RESP 18; O2SAT 93
[2017-12-13] MEDS ORDERED: ALBUMIN HUMAN 25% 75 GM IV ONE (18:00)
--- NOTE | 2017-12-14 06:55 | RADRPT ---
EXAM DATE: 12/13/2017 5:22 PM EDT AGE/SEX: 67 years / Male INDICATIONS: Ascites. CLINICAL DATA: This is the patient's subsequent encounter. Patient reports that signs and symptoms h ave been present for 2 weeks and indicates a pain score of 1/10. MEDICAL/SURGICAL HISTORY: Hypertension. Carcinoma, prostatic. Ascites. . Chemotherapy. Parac entesis. COMPARISON: [facility] – [place], US GUIDED ABD PARACENTESIS, 11/28/2017. . FLUID: Total volume of 12,200 cc of clear, yellow fluid was removed. Fluid was discarded. Paracentesis was t herapeutic only. . . TECHNIQUE: Ultrasound guidance for abdominal paracentesis. Paracentesis. The risks, benefits, and alternatives to ultrasound guided paracentesis were explained to the patient in detail including the risk of bleeding and infection. Written and verbal informed consent was obt ained. With the patient on the ultrasound table, ultrasound imaging was used to select the most appropriate approach for paracentesis. Overlying skin was prepped and draped in the usual sterile fashion and wi th a local anesthetic, a dermatotomy was made with an 11 blade scalpel. A 6 Thai Zky-S-jolovdkz ca theter was introduced into the peritoneal cavity and fluid was collected. Post procedure scanning reveals no hematoma or other complication. The patient tolerated the procedu re well and left the ultrasound suite in stable condition. FINDINGS: Large amount of ascites. CONCLUSION: 1. Uncomplicated large volume paracentesis. Electronically signed by: Thomas Watson MD 12/14/2017 6:53 AM EDT
== END 2017-12-13 17:48 | disposition home or self-care (01) ==
LOC: HRAD 13:58 → HRIP 14:02 → HRAD 17:48
PROVIDERS: ATTEND Internal Medicine
DX: R18.8 Other ascites (principal); I10 Essential (primary) hypertension
CPT/HCPCS: 49083; 96365; C1729; P9047